=== PATIENT | female | born 1985 | race Two or more races ===

== ENCOUNTER 2021-10-10 14:27 | Emergency (ER) | payer SELFPAY ==
[~2021-10-10] VITALS: Ht 175.3 cm; Wt 112.0 kg
[2021-10-10] MEDS: cloNIDine HCL 0.1 MG TAB PO ONE (15:00)
[2021-10-10 15:41] LABS: Basophils # (auto) 0.1 10 ^3/uL (0-0.2); Basophils % (auto) 0.9 % (0.0-2.0); Eosinophils # (auto) 0.2 10 ^3/uL (0-0.8); Eosinophils % (auto) 2.5 % (0.0-7.0); Hematocrit 42.6 % (36.0-46.0); Lymphocytes % (auto) 30.7 % (10.0-50.0); Mean Corpuscular Hemoglobin 28.2 pg (28.0-32.0); Mean Corpuscular Hgb Conc. 32.8 g/dL (32.0-36.0); Mean Corpuscular Volume 85.9 fL (80.0-100.0); Monocytes # (auto) 0.8 10 ^3/uL (0-1.3); Monocytes % (auto) 7.8 % (0.0-12.0); Neutrophils # (auto) 5.6 10 ^3/uL (1.6-8.6); Neutrophils % (auto) 58.1 % (37.0-80.0); Red Blood Cells 4.97 10^6/uL (4.0-5.20); Red Cell Distribution Width 13.5 % (11.8-14.3); White Blood Cell 9.7 10^3/uL (4.4-10.8)
[2021-10-10 15:58] LABS: Calcium 8.9 mg/dL (8.5-10.1); Potassium 3.7 mmol/L (3.5-5.1)
[2021-10-10 16:01] LABS: BUN/Creatinine Ratio 18.5; Bilirubin, Total 0.4 mg/dL (0.2-1.0); Total Protein 8.1 g/dL (6.4-8.2)
[2021-10-10] MEDS: ACETAMINOPHEN 325 MG TAB PO ONE (22:12)
[2021-10-10 22:28] LABS: Urine Bacteria MOD /hpf (None Seen); Urine Blood 3+ /uL (Negative); Urine Mucus FEW (None Seen); Urine Specific Gravity 1.026 (1.001-1.035); Urine WBC 65 /hpf (0 - 5)
[2021-10-10] MEDS ORDERED: LISI20TA28 PO (23:39)
[2021-10-11] VITALS: BP 108/56
== END 2021-10-10 23:54 | disposition home or self-care (01) ==
LOC: ER 14:27
DX: I10 Essential (primary) hypertension (principal); R51.9 Headache, unspecified; Z91.018 Allergy to other foods
CPT/HCPCS: 36415; 70450; 71046; 80053; 81001; 81025; 84484; 85025; 93005

== ENCOUNTER 2022-03-31 04:56 | Emergency (ER) | payer SELFPAY ==
[~2022-03-31] VITALS: Ht 175.3 cm; Wt 115.0 kg
[~2022-03-31 04:56] MED LIST: LISI20TA28 PO
[2022-03-31 06:30] LABS: Basophils # (auto) 0.1 10 ^3/uL (0-0.2); Basophils % (auto) 0.9 % (0.0-2.0); Eosinophils # (auto) 0.2 10 ^3/uL (0-0.8); Eosinophils % (auto) 2.4 % (0.0-7.0); Hematocrit 41.9 % (36.0-46.0); Hemoglobin 13.9 g/dL (12.2-16.2); Lymphocytes # (auto) 2.4 10 ^3/uL (0.4-5.4); Lymphocytes % (auto) 32.9 % (10.0-50.0); Mean Corpuscular Hemoglobin 28.8 pg (28.0-32.0); Mean Corpuscular Hgb Conc. 33.1 g/dL (32.0-36.0); Mean Corpuscular Volume 87.1 fL (80.0-100.0); Monocytes # (auto) 0.6 10 ^3/uL (0-1.3); Monocytes % (auto) 8.1 % (0.0-12.0); Neutrophils # (auto) 4.1 10 ^3/uL (1.6-8.6); Neutrophils % (auto) 55.7 % (37.0-80.0); Nucleated Red Blood Cells % 0.1 %; Red Blood Cells 4.82 10^6/uL (4.0-5.20); Red Cell Distribution Width 13.2 % (11.8-14.3); White Blood Cell 7.4 10^3/uL (4.4-10.8)
[2022-03-31] MEDS ORDERED: LISINOPRIL 20 MG TAB PO ONE (06:45)
[2022-03-31 06:46] LABS: INR 0.97 (0.9-1.15); Partial Thromboplastin Time 28.1 sec (24.6-33.4)
[2022-03-31 06:48] LABS: Albumin 3.6 g/dL (3.4-5.0); BUN/Creatinine Ratio 15.2; Calcium 8.6 mg/dL (8.5-10.1); Magnesium 2.1 mg/dL (1.6-2.6)
[2022-03-31 06:51] LABS: Bilirubin, Total 0.4 mg/dL (0.2-1.0); Total Protein 7.6 g/dL (6.4-8.2)
[2022-03-31 07:36] VITALS: BP 154/83
[2022-03-31 08:58] LABS: Urine Bacteria NONE SEEN /hpf (None Seen); Urine Blood 3+ /uL (Negative); Urine Mucus FEW (None Seen); Urine Specific Gravity 1.012 (1.001-1.035); Urine WBC 7 /hpf (0 - 5)
[2022-03-31] MEDS ORDERED: LISI20TA28 PO (09:43)
[2022-03-31] MEDS ORDERED: NITR-87 PO (09:43)
== END 2022-03-31 09:55 | disposition home or self-care (01) ==
LOC: ER 04:56
DX: I10 Essential (primary) hypertension (principal); N39.0 Urinary tract infection, site not specified; Z91.018 Allergy to other foods
CPT/HCPCS: 36415; 71045; 80053; 81001; 83735; 83880; 84484; 85025; 85610; 85730; 93005

== ENCOUNTER 2023-10-13 19:56 | Inpatient (IN) | payer MEDICAID ==
[~2023-10-13] VITALS: Ht 175.3 cm; Wt 109.0 kg
[2023-10-13] MEDS: IOHEXOL 350 MG/ML 100ML IJ ONE (00:23)
[2023-10-13] MEDS: NITROGLYCERIN 0.4 MG SL TAB SL ONE (00:23)
[2023-10-13] MEDS: ASPirin 325 MG TAB PO ONE (00:24)
[2023-10-13] MEDS: SODIUM CHLORIDE 0.9% 1,000 ML IV SCH (00:24)
[~2023-10-13 19:56] MED LIST changes: -LISI20TA28 PO; +LISI20TA56 PO; +NITR-87 PO
[2023-10-13 20:23] LABS: Basophils # (auto) 0.1 10 ^3/uL (0-0.2); Basophils % (auto) 0.8 % (0.0-2.0); Eosinophils # (auto) 0.2 10 ^3/uL (0-0.8); Eosinophils % (auto) 2.3 % (0.0-7.0); Hematocrit 41.2 % (36.0-46.0); Hemoglobin 13.7 g/dL (12.2-16.2); Lymphocytes # (auto) 3.3 10 ^3/uL (0.4-5.4); Lymphocytes % (auto) 38.5 % (10.0-50.0); Mean Corpuscular Hemoglobin 28.6 pg (28.0-32.0); Mean Corpuscular Hgb Conc. 33.3 g/dL (32.0-36.0); Mean Corpuscular Volume 85.8 fL (80.0-100.0); Monocytes # (auto) 0.8 10 ^3/uL (0-1.3); Monocytes % (auto) 9.4 % (0.0-12.0); Neutrophils # (auto) 4.2 10 ^3/uL (1.6-8.6); Nucleated Red Blood Cells % 0.1 %; Platelet Count (auto) 298 10^3/uL (140-450); Red Blood Cells 4.81 10^6/uL (4.0-5.20); Red Cell Distribution Width 13.5 % (11.8-14.3); White Blood Cell 8.5 10^3/uL (4.4-10.8)
[2023-10-13 20:39] LABS: Alanine Aminotransferase 279 U/L (7-40); Albumin 4.6 g/dL (3.2-4.8); Alkaline Phosphatase 87 U/L (46-116); Anion Gap 7 (5-15); Aspartate Aminotransferase 284 U/L (13-40); BUN/Creatinine Ratio 17.1 (10.0-20.0); Bilirubin, Total 0.3 mg/dL (0.2-1.0); Blood Urea Nitrogen 13 mg/dL (9-23); Calcium 10.2 mg/dL (8.7-10.4); Carbon Dioxide 28 mmol/L (20-30); Chloride 102 mmol/L (98-107); Glucose 252 mg/dL (74-106); Potassium 4.2 mmol/L (3.5-5.1); Sodium 137 mmol/L (136-145)
[2023-10-13 20:40] LABS: Total Protein 7.4 g/dL (5.7-8.2)
[2023-10-13 20:42] VITALS: O2SAT 96
[2023-10-13] MEDS: ALBUTEROL SULF 2.5 MG/0.5ML(0.5%) NEB SOLN NEB ONE (20:42)
[2023-10-13] MEDS: IPRATROPIUM BROM 0.5 MG/2.5ML INH SOL NEB ONE (20:42)
[2023-10-13] MEDS ORDERED: IPRATROPIUM BROM 0.5 MG/2.5ML INH SOL NEB PRN (23:15)
[2023-10-13] MEDS ORDERED: NITROGLYCERIN 0.4 MG SL TAB SL PRN (23:15)
[2023-10-13] MEDS ORDERED: HYDROcodone-ACET 5/325MG TAB PO PRN (23:15)
[2023-10-13] MEDS ORDERED: DEXTROSE (50%) 50ML SYRG IV PRN (23:15)
[2023-10-13] MEDS ORDERED: IBUPROFEN 600 MG TAB PO PRN (23:15)
[2023-10-13] MEDS ORDERED: DOCUSATE SOD 100 MG CAP PO PRN (23:15)
[2023-10-13] MEDS ORDERED: MORPHINE SULFATE INJ 2 MG/ml SYRG IV PRN (23:15)
[2023-10-13] MEDS ORDERED: ONDANSETRON HCL 4 MG/2 ML VIAL IV PRN (23:15)
[2023-10-13] MEDS ORDERED: ALBUTEROL SULF 2.5 MG/0.5ML(0.5%) NEB SOLN NEB PRN (23:15)
[2023-10-13 23:29] VITALS: BP 166/108; PULSE 85; RESP 20; O2SAT 96
[2023-10-13 23:33] LABS: Urine Bacteria None Seen /hpf (None Seen)
[2023-10-13 23:53] LABS: Amphetamine Screen, Urine Neg (NEGATIVE); Barbiturate Scree,Urine Neg (NEGATIVE); Benzodiazephine Screen, Urine Neg (NEGATIVE); Cannabinoid Screen, Urine Neg (NEGATIVE); Cocaine Screen, Urine Neg (NEGATIVE); Opiate Scree,Urine Neg (NEGATIVE); Phencyclidine Screen, Urine Neg (NEGATIVE)
[2023-10-14] VITALS (10 sets, daily range): BP systolic 115–144; BP diastolic 72–90; PULSE 62–80; RESP 16–23; TEMP 97.9–98.7; O2SAT 95–97
[2023-10-14 00:17] LABS: Urine Blood 2+ /uL (Negative); Urine Clarity Clear (Clear); Urine Color Light-Yellow (Yellow); Urine Protein, UAD TRACE (Negative); Urine Urobilinogen Normal (Negative); Urine WBC 1 /hpf (0 - 5)
[2023-10-14] MEDS: MORPHINE SULFATE INJ 2 MG/ml SYRG IV PRN (00:22)
[2023-10-14 04:18] LABS: Basophils # (auto) 0.1 10 ^3/uL (0-0.2); Basophils % (auto) 0.7 % (0.0-2.0); Eosinophils # (auto) 0.1 10 ^3/uL (0-0.8); Eosinophils % (auto) 1.8 % (0.0-7.0); Hematocrit 40.8 % (36.0-46.0); Hemoglobin 13.8 g/dL (12.2-16.2); Lymphocytes # (auto) 3.2 10 ^3/uL (0.4-5.4); Mean Corpuscular Hemoglobin 29.5 pg (28.0-32.0); Mean Corpuscular Hgb Conc. 33.7 g/dL (32.0-36.0); Mean Corpuscular Volume 87.5 fL (80.0-100.0); Monocytes # (auto) 0.8 10 ^3/uL (0-1.3); Neutrophils # (auto) 3.8 10 ^3/uL (1.6-8.6); Neutrophils % (auto) 47.5 % (37.0-80.0); Nucleated Red Blood Cells % 0.1 %; Platelet Count (auto) 278 10^3/uL (140-450); Red Blood Cells 4.67 10^6/uL (4.0-5.20); Red Cell Distribution Width 13.7 % (11.8-14.3); White Blood Cell 8.1 10^3/uL (4.4-10.8)
[2023-10-14 04:37] LABS: Alanine Aminotransferase 234 U/L (7-40); Albumin 4.3 g/dL (3.2-4.8); Alkaline Phosphatase 77 U/L (46-116); Anion Gap 7 (5-15); Aspartate Aminotransferase 195 U/L (13-40); BUN/Creatinine Ratio 11.8 (10.0-20.0); Bilirubin, Total 0.3 mg/dL (0.2-1.0); Blood Urea Nitrogen 8 mg/dL (9-23); Calcium 9.3 mg/dL (8.7-10.4); Carbon Dioxide 24 mmol/L (20-30); Chloride 103 mmol/L (98-107); Glucose 281 mg/dL (74-106); Potassium 3.9 mmol/L (3.5-5.1); Sodium 134 mmol/L (136-145)
[2023-10-14 04:38] LABS: Total Protein 7.4 g/dL (5.7-8.2)
[2023-10-14] MEDS ORDERED: FLUO-126 PO (05:47)
[2023-10-14] MEDS: ACCU-CHEK COMFORT CURVE STRIP VI SCH (06:54)
[2023-10-14] MEDS: InsuLIN REG 1unit/0.01ml Soln (100units/ml) SC SCH ×2 (06:56→21:58)
[2023-10-14] MEDS: ASPirin 81 mg TAB PO SCH (09:07)
[2023-10-14 12:25] LABS: INR 1.06 (0.9-1.15); Partial Thromboplastin Time 26.8 SEC (24.5-34.5); Prothrombin Time 11.2 sec (9.3-11.8)
[2023-10-14] MEDS: ERGOCALCIFEROL 50,000 UNIT(1.25MG) CAP PO SCH (12:33)
[2023-10-14] MEDS: LISINOPRIL 20 MG TAB PO ONE (12:34)
[2023-10-14] MEDS: INSULIN LANTUS (GLARGINE) 1 /0.01ml (100units/ml) SC SCH (12:38)
[2023-10-14 12:39] LABS: LDL Cholesterol 130 mg/dL (< 100); Triglycerides 212 mg/dL (< 150)
[2023-10-14 12:40] LABS: Cholesterol 198 mg/dL (< 200); HDL Cholesterol 38 mg/dL (40-59)
[2023-10-14] MEDS: ENOXAPARIN SOD 40 MG/0.4 ML SYRINGE SC ONE (20:22)
[2023-10-14] MEDS ORDERED: ATORVASTATIN 20 MG TAB PO SCH (22:00)
[2023-10-15] VITALS (7 sets, daily range): BP systolic 111–153; BP diastolic 68–94; PULSE 71–86; RESP 16–20; TEMP 98–98.7; O2SAT 95–98
[2023-10-15 06:18] LABS: Basophils # (auto) 0.1 10 ^3/uL (0-0.2); Eosinophils # (auto) 0.3 10 ^3/uL (0-0.8); Eosinophils % (auto) 3.6 % (0.0-7.0); Hematocrit 40.4 % (36.0-46.0); Hemoglobin 13.9 g/dL (12.2-16.2); Lymphocytes # (auto) 3.1 10 ^3/uL (0.4-5.4); Mean Corpuscular Hemoglobin 30.3 pg (28.0-32.0); Mean Corpuscular Hgb Conc. 34.5 g/dL (32.0-36.0); Mean Corpuscular Volume 87.7 fL (80.0-100.0); Monocytes # (auto) 0.8 10 ^3/uL (0-1.3); Monocytes % (auto) 9.8 % (0.0-12.0); Neutrophils # (auto) 3.9 10 ^3/uL (1.6-8.6); Neutrophils % (auto) 47.6 % (37.0-80.0); Nucleated Red Blood Cells % 0.2 %; Platelet Count (auto) 321 10^3/uL (140-450); White Blood Cell 8.1 10^3/uL (4.4-10.8)
[2023-10-15 07:15] LABS: Chloride 103 mmol/L (98-107); Sodium 136 mmol/L (136-145)
[2023-10-15 07:16] LABS: Anion Gap 7 (5-15); Calcium 9.1 mg/dL (8.7-10.4); Carbon Dioxide 26 mmol/L (20-30)
[2023-10-15 07:21] LABS: BUN/Creatinine Ratio 17.9 (10.0-20.0); Blood Urea Nitrogen 12 mg/dL (9-23); Glucose 250 mg/dL (74-106)
[2023-10-15] MEDS: ENOXAPARIN SOD 40 MG/0.4 ML SYRINGE SC SCH (08:20)
[2023-10-15] MEDS: LISINOPRIL 20 MG TAB PO SCH (08:20)
[2023-10-15] MEDS: hydrALAZINE HCL 20 MG/ML VL IV PRN (08:21)
[2023-10-15] MEDS: INSULIN LANTUS (GLARGINE) 1 /0.01ml (100units/ml) SC SCH (08:30)
[2023-10-15] MEDS ORDERED: SULF400T11 (09:41)
[2023-10-15] MEDS ORDERED: OMEP1CAP70 PO (09:41)
[2023-10-15] MEDS ORDERED: ACET-6 PO (09:41)
[2023-10-15] MEDS ORDERED: METF-370 PO (09:41)
[2023-10-15] MEDS ORDERED: FLUO-470 PO (09:41)
[2023-10-15] MEDS ORDERED: ATOR10TA52 PO (09:41)
[2023-10-16] VITALS (9 sets, daily range): BP systolic 102–136; BP diastolic 70–89; PULSE 65–90; RESP 17–20; TEMP 97.3–98; O2SAT 91–98
[2023-10-16 07:22] LABS: Basophils # (auto) 0 10 ^3/uL (0-0.2); Basophils % (auto) 0.5 % (0.0-2.0); Eosinophils # (auto) 0.2 10 ^3/uL (0-0.8); Hemoglobin 13.9 g/dL (12.2-16.2); Lymphocytes # (auto) 2.9 10 ^3/uL (0.4-5.4); Mean Corpuscular Hemoglobin 28.6 pg (28.0-32.0); Mean Corpuscular Hgb Conc. 33.1 g/dL (32.0-36.0); Mean Corpuscular Volume 86.5 fL (80.0-100.0); Monocytes # (auto) 0.8 10 ^3/uL (0-1.3); Monocytes % (auto) 10.8 % (0.0-12.0); Neutrophils # (auto) 3.2 10 ^3/uL (1.6-8.6); Neutrophils % (auto) 44.7 % (37.0-80.0); Nucleated Red Blood Cells % 0.1 %; Platelet Count (auto) 293 10^3/uL (140-450); Red Blood Cells 4.86 10^6/uL (4.0-5.20); Red Cell Distribution Width 13.6 % (11.8-14.3)
[2023-10-16 07:44] LABS: Anion Gap 6 (5-15); Carbon Dioxide 27 mmol/L (20-30); Chloride 104 mmol/L (98-107); Potassium 3.9 mmol/L (3.5-5.1); Sodium 137 mmol/L (136-145)
[2023-10-16 07:45] LABS: Calcium 9.2 mg/dL (8.7-10.4)
[2023-10-16 07:50] LABS: BUN/Creatinine Ratio 16.5 (10.0-20.0); Blood Urea Nitrogen 13 mg/dL (9-23); Glucose 217 mg/dL (74-106)
[2023-10-17 09:00] LABS: Hepatitis B Surface Antigen Negative (Negative)
[2023-10-17 09:22] LABS: Hepatitis A Ab IgM Negative; Hepatitis B Core IgM Negative; Hepatitis C Antibody Negative (Negative)
== END 2023-10-16 17:39 | disposition home or self-care (01) | DRG 198 ==
LOC: ER 19:56 → TELE 23:19 → TELE-WESTW 10-14 04:50 → WEST WING 10-16 00:27
PROVIDERS: ATTEND Internal Medicine
DX: I24.9 Acute ischemic heart disease, unspecified (principal); K76.0 Fatty (change of) liver, not elsewhere classified; R16.2 Hepatomegaly with splenomegaly, not elsewhere classified; E11.65 Type 2 diabetes mellitus with hyperglycemia; E78.5 Hyperlipidemia, unspecified; I10 Essential (primary) hypertension; L73.2 Hidradenitis suppurativa; F41.0 Panic disorder [episodic paroxysmal anxiety]; Z98.891 History of uterine scar from previous surgery; Z82.49 Family history of ischemic heart disease and other diseases of the circulatory system; Z83.3 Family history of diabetes mellitus; Z79.899 Other long term (current) drug therapy
CPT/HCPCS: 36415; 71045; 71275; 76705; 80048; 80053; 80061; 80074; 80307; 81001; 82306; 82607; 82962; 83036; 83880; 84443; 84484; 84702; 85025; 85379; 85610; 85730; 93005; 93306; 94640; 96360; G0378; J1815

== ENCOUNTER 2024-10-18 07:36 | Inpatient (IN) | payer MEDICAID ==
[~2024-10-18] VITALS: Ht 175.3 cm; Wt 103.2 kg
[~2024-10-18 07:36] MED LIST changes: -NITR-87 PO
--- NOTE | 2024-10-18 08:32 | ED.PDOC ---
HPI (NEURO) HPI Comments 39 y/o female, with past medical history of diabetes, hyperlipidemia, and hypertension presents to the emergency department for chief complaint of dizziness sudden onset today at 4:00 a.m. Patient states, she began to experience dizziness with associated symptoms of shortness of breath that woke her up out of her sleep. Upon arrival to the emergency department, patient complains of new onset intermittent chest pain. Patient describes chest pain to be tight in nature with no radiation. Patient denies blurred vision, headache, nausea, vomiting, numbness, or weakness. No other symptoms or modifying factors are present at this time. Chief Complaint: Dizziness Time Seen by MD: 08:25 Primary Care Provider: CALEB DAVID Reviewed Notes: Nurses Notes, Medications, Allergies Information Source: Patient Mode of Arrival: Ambulatory Severity: Moderate Dizziness/Weakness Severity: Does not affect activitie Headache Severity: None Timing: Hours Duration: Since onset Prehospital treatment: None Onset: At rest Circumstances: Spontaneous Symptoms: Other (Dizziness) Before: Normal During: Awake After: Normal Mentation History of: DM Modifying factors: Nothing Associated Signs and Symptoms: Chest Pain Past Medical History PAST MEDICAL HISTORY: DM, High Lipids, HTN 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: No Pertinent METER REPAIRER HELPER History Family History Family History: Unknown Social History Smoker: Non-Smoker Alcohol: Denies ETOH Use Drugs: Denies Drug Use Lives In: Home Constitutional: denies: chills, diaphoresis, fatigue, fever, malaise, sweats, weakness, others EENTM: denies: blurred vision, double vision, ear bleeding, ear discharge, ear drainage, ear pain, ear ringing, eye pain, eye redness, hearing loss, mouth pain, mouth swelling, nasal discharge, nose bleeding, nose congestion, nose pain, photophobia, tearing, throat pain, throat swelling, voice changes, others Respiratory: reports: shortness of breath; denies: cough, hemoptysis, orthopnea, SOB at rest, SOB with excertion, stridor, wheezing, others Cardiovascular: reports: chest pain; denies: dizzy spells, diaphoresis, Dyspnea on exertion, edema, irregular heart beat, left arm pain, lightheadedness, palpitations, PND, syncope, others Gastrointestinal: denies: abdomen distended, abdominal pain, blood streaked bowels, constipated, diarrhea, dysphagia, difficulty swallowing, hematemesis, melena, nausea, poor appetite, poor fluid intake, rectal bleeding, rectal pain, vomiting, others Genitourinary: denies: abnormal vagina bleeding, burning, dyspareunia, dysuria, flank pain, frequency, hematuria, incontinence, pain, , vagina discharge, urgency, others Neurological: reports: dizziness; denies: fainting, headache, left sided numbness, left sided weakness, numbness, paresthesia, pre-existing deficit, right sided numbness, right sided weakness, seizure, speech problems, tingling, tremors, weakness, others Musculoskeletal: denies: back pain, gout, joint pain, joint swelling, muscle pain, muscle stiffness, neck pain, others Integumetry: denies: bruises, change in color, change in hair/nails, dryness, laceration, lesions, lumps, rash, wounds, others Allergic/Immunocompromised: denies: Difficulty Healing, Frequent Infections, Hives, Itching, others Hematologic/Lymphatic: denies: anemia, blood clots, easy bleeding, easy bruising, swollen glands, others Endocrine: denies: excessive hunger, excessive sweating, excessive thirst, excessive urination, flushing, intolerance to cold, intolerance to heat, unexplained weight gain, unexplained weight loss, others Psychiatric: denies: anxiety, bipolar disorder, depression, hopeless, panic disorder, schizophrenia, sleepless, suicidal, others All Other Systems: Reviewed and Negative Physical Exam General Appearance: No Apparent Distress, Normal HEENT: Normal ENT Inspection, Pharynx Normal Neck: Full Range of Motion, Non-Tender, Normal, Normal Inspection Respiratory: Chest Non-Tender, Lungs Clear, No Accessory Muscle Use, No Respiratory Distress, Normal Breath Sounds Cardiovascular: No Edema, No Murmur, No Gallop, Normal Peripheral Pulses, Regular Rate/Rhythm Breast Exam: Deferred Gastrointestinal: No Organomegaly, Non Tender, No Pulsatile Mass, Normal Bowel Sounds, Soft Genitalia: Deferred Pelvic: Deferred Rectal: Deferred Extremities: No calf tenderness, Normal capillary refill, Normal inspection, Normal range of motion, Non-tender, No pedal edema Musculoskeletal : Apperance: Normal Neurologic: Alert, cutter down II-XII nml as Tested, No Motor Deficits, Normal Affect, Normal Mood, No Sensory Deficits Cerebellar Function: Normal Reflexes: Normal Skin: Dry, Normal Color, Warm Lymphatic: No Adenopathy Was a procedure done? Was a procedure done?: No Differential Diagnosis (SZ) Seizure: Hypocalcemia General Weakness: Vertigo: central, Vertigo: peripheral, Other (Hypertensive urgency) X-Ray, Labs, Meds, VS Vital Signs Date Time Temp Pulse Resp B/P (MAP) Pulse Ox O2 Delivery O2 Flow Rate FiO2 10/18/24 08:10 79 10/18/24 07:38 98.7 92 16 180/108 99 98.7 Lab Test 10/18/24 09:23 10/18/24 08:45 10/18/24 08:25 Range/Units Troponin I High Sensitivity < 3 L < 3 L </=34 ng/L Urine Color Light-yellow Yellow Urine Clarity Clear Clear Urine pH 6.0 5.0-9.0 Urine Specific [place] 1.017 1.001-1.035 Urine Protein Negative Negative Urine Ketones Negative Negative Urine Blood Negative Negative /uL Urine Nitrite Negative Negative Urine Bilirubin Negative Negative Urine Urobilinogen Normal Negative mg/dL Urine Leukocyte Esterase Negative Negative /uL Urine RBC 1 0 - 4 /hpf Urine Microscopic WBC 1 0-5 /HPF Urine Squamous Epithelial Cells Few <5 /hpf Urine Bacteria None seen None Seen /hpf Urine Mucus Few None Seen Urine Glucose Normal Normal mg/dL White Blood Count 9.2 4.4-10.8 10^3/uL Red Blood Count 4.60 4.0-5.20 10^6/uL Hemoglobin 13.1 12.2-16.2 g/dL Hematocrit 38.8 36.0-46.0 % Mean Corpuscular Volume 84.4 80.0-100.0 fL Mean Corpuscular Hemoglobin 28.4 28.0-32.0 pg Mean Corpuscular Hemoglobin Concent 33.7 32.0-36.0 g/dL Red Cell Distribution Width 14.2 11.8-14.3 % Platelet Count 344 140-450 10^3/uL Mean Platelet Volume 8.0 6.9-10.8 fL Neutrophils (%) (Auto) 59.6 37.0-80.0 % Lymphocytes (%) (Auto) 30.9 10.0-50.0 % Monocytes (%) (Auto) 6.8 0.0-12.0 % Eosinophils (%) (Auto) 2.1 0.0-7.0 % Basophils (%) (Auto) 0.6 0.0-2.0 % Neutrophils # (Auto) 5.5 1.6-8.6 10 ^3/uL Lymphocytes # (Auto) 2.9 0.4-5.4 10 ^3/uL Monocytes # (Auto) 0.6 0-1.3 10 ^3/uL Eosinophils # (Auto) 0.2 0-0.8 10 ^3/uL Basophils # (Auto) 0.1 0-0.2 10 ^3/uL Nucleated Red Blood Cells 0.0 % Sodium Level 140 136-145 mmol/L Potassium Level 3.8 3.5-5.1 mmol/L Chloride Level 105 98-107 mmol/L Carbon Dioxide Level 26 20-31 mmol/L Anion Gap 9 5-15 Blood Urea Nitrogen 7 L 9-23 mg/dL Creatinine 0.68 0.550-1.02 mg/dL Glomerular Filtration Rate Calc 112 >90 mL/min BUN/Creatinine Ratio 10.3 10.0-20.0 Serum Glucose 129 H 74-106 mg/dL Calcium Level 9.0 8.7-10.4 mg/dL [place] [address] Ph: [phone] DIAGNOSTIC IMAGING Diagnostic Imaging Report : [id number] Signed PATIENT: SARA ARAGON AACCT: [id number] UNIT: [id number] : 1985 LOC: ER ROOM / BED: / AGE / SEX: 39 / F ADM STATUS: REG ER SERVICE [id number] ORDERING PHYSICIAN: RINA ROCHE MD PROCEDURE(s): CXRP - CHEST PORTABLE REASON: weakness ORDER NUMBER(s): [id number], ACCESSION NUMBER(s): [id number] INDICATION: weakness TECHNIQUE: Frontal view of the chest. COMPARISON: CT CT ANGIO CHEST CONTRAST on DOS: 10/13/23, XY CHEST PORTABLE on DOS: 10/13/23, XY CHEST PORTABLE on DOS: 05/28/23, CHEST PORTABLE on DOS: 03/31/22, CXRP on DOS: 03/31/22 FINDINGS: . The heart and mediastinal contours are grossly unremarkable. There is no evidence of pleural disease. The lungs are clear. The bony structures of the chest are intact without fracture. IMPRESSION: 1. No evidence of acute disease. ATED BY: DAMION GUERRIER MD DICTATED DATE/TIME: 10/18/24841 SIGNED BY: DAMION GUERRIER MD SIGNED DATE/TIME: 10/18/24841 CC: [place] [address] Ph: [phone] DIAGNOSTIC IMAGING Diagnostic Imaging Report : [id number] Signed PATIENT: SARA ARAGON AACCT: [id number] UNIT: [id number] : 1985 LOC: ER ROOM / BED: / AGE / SEX: 39 / F ADM STATUS: REG ER SERVICE 1 ORDERING PHYSICIAN: RINA ROCHE MD PROCEDURE(s): HWOCT - HEAD WITHOUT CONTRAST REASON: weakness ORDER NUMBER(s): [id number], ACCESSION NUMBER(s): [id number] EXAM: CT HEAD WITHOUT CONTRAST INDICATION: weakness TECHNIQUE: CT of the head without intravenous contrast. Coronal and sagittal reformatted images are submitted. Radiation Dose : 1. Head: CT Dose: CTDI volume is 54.97 mGy. Dose-length product is 879.5 mGy*cm The dose indicators for CT are the volume Computed Tomography (CT) Dose Index (CTDIvol) and the Dose Length Product (DLP), and are measured in units of mGy and mGy-cm, respectively. These indicators are not patient dose, but values generated from the CT scanner acquisition factors. The report includes radiation exposure data for exposures received during this examination. All CT scans at this medical facility are performed using dose modulation techniques as appropriate to a performed exam including the following: Automated exposure control was utilized; adjustment of the MA and/or KV according to patient size; and use of iterative reconstruction technique. COMPARISON: HEAD WITHOUT CONTRAST on DOS: 10/10/21 FINDINGS: There is no evidence of acute intracranial hemorrhage, extra-axial collection, mass effect, midline shift, herniation or hydrocephalus. The ventricles, sulci and cisterns are age appropriate. The correa-white differentiation is intact. The visualized paranasal sinuses and mastoid air cells are clear. No depressed calvarial fracture. The surrounding soft tissues are unremarkable. IMPRESSION: 1. No evidence of acute intracranial abnormality. ATED BY: FLY ALVARADO MD DICTATED DATE/TIME: 10/18/24840 SIGNED BY: FLY ALVARADO MD SIGNED DATE/TIME: 10/18/24840 CC: Time of 1ST Reevaluation: 08:55 Reevaluation 1ST: Unchanged Patient Education/Counseling: Diagnosis, Treatment Family Education/Counseling: No Family Present Departure 1 Departure Time of Disposition: 10:34 (Patient presented with chest pain that was concerning for possible STEMI, ACS, PE, Pneumonia, Muscle Strain, COPD, Dissection. Data: 1. I ordered and reviewed the result of at least 3 labs including a CBC, BMP, and Troponin. 2. I independently interpreted the following tests: EKG which shows _ sinus arrhythmia and Chest X-ray which shows benign chest _.Risk:This patient has a high risk of morbidity due to further diagnostic testing or treatment and may suffer from an acute cardiac or respiratory disorder. Workup reveals concern for ACS and patient should be admitted for further workup and possible expert consultation. ) Impression: Primary Impression: Acute chest pain Additional Impression: Dizziness Disposition: 09 ADMITTED INPATIENT Admit to: Med Surg Condition: Guarded Critical Care Note Critical Care Time?: Yes Critical care comment: Acute Chest Pain Authorized and Performed by: Rina Roche MD Total critical care time: Approximately 39 minutes Due to a high probability of clinically significant, life threatening deterioration, the patient required my highest level of preparedness to intervene emergently and I personally spent this critical care time directly and personally managing the patient. This critical care time included obtaining a history; examining the patient; pulse oximetry; ordering and review of studies; arranging urgent treatment with development of a management plan; evaluation of patient's response to treatment; frequent reassessment; and, discussions with other providers. This critical care time was performed to assess and manage the high probability of imminent, life-threatening deterioration that could result in multi-organ failure. It was exclusive of separately billable procedures and treating other patients and teaching time. Please see my other sections and the rest of the note for further information on patient assessment and treatment. Stability Stability form required: No Heart Score Heart Score: Heart Score Response (Comments) Value History Moderate Suspicious 1 EKG Repolarization Disturb 1 Age <45 0 Risk Factors >3 or Hx ASHD 2 Troponin 1-2 x's Normal limit 1 Total 5 I personally scribed for RINA ROCHE MD ([facility] on 10/18/24 at 08:32. Elect ronically submitted by Caridad Colunga ([employer]). I personally scribed for RINA ROCHE MD ([facility]) on 10/18/24 at 08:59. Electronically submitted by Caridad Colunga ([employer]). I personally scribed for RINA ROCHE MD ([email or web address]) on 10/18/24 at 09:00. Electronically submitted by Caridad Colunga ([facility]). RINA ROCHE MD Oct 18, 2024 08:32
--- NOTE | 2024-10-18 08:43 | DVH ---
EXAM: CT HEAD WITHOUT CONTRAST INDICATION: weakness TECHNIQUE: CT of the head without intravenous contrast. Coronal and sagittal reformatted images are s ubmitted. Radiation Dose : 1. Head: CT Dose: CTDI volume is 54.97 mGy. Dose-length product is 879.5 mGy*cm The dose indicators for CT are the volume Computed Tomography (CT) Dose Index (CTDIvol) and the Dose Length Product (DLP), and are measured in units of mGy and mGy-cm, respectively. These indicators are not patient dose, but values generated from the CT scanner acquisition factors. The report includes radiation exposure data for exposures received during this examination. All CT scans at this medical facility are performed using dose modulation techniques as appropriate to a performed exam including the following: Automated exposure control was utilized; adjustment of the MA and/or KV according to patient size; and use of iterative reconstruction technique. COMPARISON: HEAD WITHOUT CONTRAST on DOS: 10/10/21 FINDINGS: There is no evidence of acute intracranial hemorrhage, extra-axial collection, mass effect, midline s hift, herniation or hydrocephalus. The ventricles, sulci and cisterns are age appropriate. The correa-white differentiation is intact. The visualized paranasal sinuses and mastoid air cells are clear. No depressed calvarial fracture. The surrounding soft tissues are unremarkable. IMPRESSION: 1. No evidence of acute intracranial abnormality.
--- NOTE | 2024-10-18 08:45 | DVH ---
INDICATION: weakness TECHNIQUE: Frontal view of the chest. COMPARISON: CT CT ANGIO CHEST CONTRAST on DOS: 10/13/23, XY CHEST PORTABLE on DOS: 10/13/23, XY CHEST P ORTABLE on DOS: 05/28/23, CHEST PORTABLE on DOS: 03/31/22, CXRP on DOS: 03/31/22 FINDINGS: . The heart and mediastinal contours are grossly unremarkable. There is no evidence of pleural disea se. The lungs are clear. The bony structures of the chest are intact without fracture. IMPRESSION: 1. No evidence of acute disease.
[2024-10-18 09:07] LABS: Chloride 105 mmol/L (98-107); Hematocrit 38.8 % (36.0-46.0); Hemoglobin 13.1 g/dL (12.2-16.2); Mean Corpuscular Hemoglobin 28.4 pg (28.0-32.0); Mean Corpuscular Volume 84.4 fL (80.0-100.0); Nucleated Red Blood Cells % 0.0 %; Potassium 3.8 mmol/L (3.5-5.1); Sodium 140 mmol/L (136-145)
[2024-10-18 09:08] LABS: Urine Protein, UAD Negative (Negative)
[2024-10-18 09:08] LABS: Anion Gap 9 (5-15); Carbon Dioxide 26 mmol/L (20-31)
[2024-10-18 09:09] LABS: Calcium 9.0 mg/dL (8.7-10.4)
[2024-10-18 09:13] LABS: BUN/Creatinine Ratio 10.3 (10.0-20.0)
[2024-10-18 09:16] LABS: Blood Urea Nitrogen 7 mg/dL (9-23); Glucose 129 mg/dL (74-106)
[2024-10-18] MEDS ORDERED: MORPHINE SULFATE INJ 2 MG/ml SYRG IV PRN (14:30)
[2024-10-18] MEDS ORDERED: ONDANSETRON HCL 4 MG/2 ML VIAL IV PRN (14:30)
[2024-10-18] MEDS ORDERED: NITROGLYCERIN 0.4 MG SL TAB SL PRN (14:30)
[2024-10-18 14:50] VITALS: PULSE 80; RESP 17; O2SAT 95
[2024-10-18 15:05] VITALS: BP 139/91; PULSE 72; RESP 16; TEMP 98.1; O2SAT 97
--- NOTE | 2024-10-18 15:51 | DVHHP2 ---
History of Present Illness Reason for Visit: Chest pain History of Present Illness 39-year-old female presents for evaluation of chest pain. Patient reports a one day history of left-sided pressure-like chest pain that radiates to her left shoulder with associated shortness for breath and new onset of dizziness. Patient was discharged four days ago after being admitted with similar symptoms. Patient was advised to follow up with Cardiology as outpatient but she has been canceled twice for her appointment. Past Medical History Hypertension, dyslipidemia, diabetes mellitus Past Surgical History Family History Noncontributory Smoke: No ALCOHOL: none Drugs: None Lives: with Family Review of Systems Review of Systems Review of systems are currently negative otherwise addressed in HPI. Allergies: Coded Allergies: Honey (Verified Allergy, Unknown, 10/10/21) Medications Current Medications Medications Dose Ordered Sig/Presley Route Start Time Stop Time Status Last Admin Dose Admin Lisinopril 20 mg DAILY PO 10/19/24 10:00 UNV Aspirin 81 mg DAILY PO 10/19/24 10:00 UNV Atorvastatin Calcium 10 mg HS PO 10/18/24 22:00 UNV Ondansetron HCl 4 mg Q4HP PRN IV 10/18/24 14:30 UNV Nitroglycerin 0.4 mg Q5MINP PRN SL 10/18/24 14:30 UNV Morphine Sulfate 2 mg Q30M PRN IV 10/18/24 14:30 UNV Exam Vital Signs Vital Signs Date Time Temp Pulse Resp B/P (MAP) Pulse Ox O2 Delivery O2 Flow Rate FiO2 10/18/24 15:05 98.1 72 16 139/91 (107) 97 98.1 10/18/24 14:50 Room Air* 0 21 Exam Gen: 39-year-old female in no apparent distress. Skin: Warm, dry, normal color and texture, no rash. HEENT: Normocephalic atraumatic, mucous membranes moist and pink. Neck: Cervical and supraclavicular nodes normal without enlargement, trachea is midline, thyroid gland is normal without masses. Pulmonary: Clear to auscultation and percussion bilaterally. Cardiac: Regular rate and rhythm. No murmur Abdomen: Soft, nontender, nondistended, bowel sounds present all 4 quadrants, no guarding, no rigidity, no organomegaly. Extremities: No cyanosis, clubbing, no edema Neuro: Cranial nerves II through XII grossly intact, normal affect and speech, no focal motor deficits. Labs/Xrays ORDERING PHYSICIAN: RINA ROCHE MD PROCEDURE(s): HWOCT - HEAD WITHOUT CONTRAST REASON: weakness ORDER NUMBER(s): [id number], ACCESSION NUMBER(s): [id number] EXAM: CT HEAD WITHOUT CONTRAST INDICATION: weakness TECHNIQUE: CT of the head without intravenous contrast. Coronal and sagittal reformatted images are submitted. Radiation Dose : 1. Head: CT Dose: CTDI volume is 54.97 mGy. Dose-length product is 879.5 mGy*cm The dose indicators for CT are the volume Computed Tomography (CT) Dose Index (CTDIvol) and the Dose Length Product (DLP), and are measured in units of mGy and mGy-cm, respectively. These indicators are not patient dose, but values generated from the CT scanner acquisition factors. The report includes radiation exposure data for exposures received during this examination. All CT scans at this medical facility are performed using dose modulation techniques as appropriate to a performed exam including the following: Automated exposure control was utilized; adjustment of the MA and/or KV according to patient size; and use of iterative reconstruction technique. COMPARISON: HEAD WITHOUT CONTRAST on DOS: 10/10/21 FINDINGS: There is no evidence of acute intracranial hemorrhage, extra-axial collection, mass effect, midline shift, herniation or hydrocephalus. The ventricles, sulci and cisterns are age appropriate. The correa-white differentiation is intact. The visualized paranasal sinuses and mastoid air cells are clear. No depressed calvarial fracture. The surrounding soft tissues are unremarkable. IMPRESSION: 1. No evidence of acute intracranial abnormality. Labs Test 10/18/24 09:23 10/18/24 08:45 10/18/24 08:25 Range/Units Troponin I High Sensitivity < 3 L </=34 ng/L Urine Color Light-yellow Yellow Urine Clarity Clear Clear Urine pH 6.0 5.0-9.0 Urine Specific [place] 1.017 1.001-1.035 Urine Protein Negative Negative Urine Ketones Negative Negative Urine Blood Negative Negative /uL Urine Nitrite Negative Negative Urine Bilirubin Negative Negative Urine Urobilinogen Normal Negative mg/dL Urine Leukocyte Esterase Negative Negative /uL Urine RBC 1 0 - 4 /hpf Urine Microscopic WBC 1 0-5 /HPF Urine Squamous Epithelial Cells Few <5 /hpf Urine Bacteria None seen None Seen /hpf Urine Mucus Few None Seen Urine Glucose Normal Normal mg/dL White Blood Count 9.2 4.4-10.8 10^3/uL Red Blood Count 4.60 4.0-5.20 10^6/uL Hemoglobin 13.1 12.2-16.2 g/dL Hematocrit 38.8 36.0-46.0 % Mean Corpuscular Volume 84.4 80.0-100.0 fL Mean Corpuscular Hemoglobin 28.4 28.0-32.0 pg Mean Corpuscular Hemoglobin Concent 33.7 32.0-36.0 g/dL Red Cell Distribution Width 14.2 11.8-14.3 % Platelet Count 344 140-450 10^3/uL Mean Platelet Volume 8.0 6.9-10.8 fL Neutrophils (%) (Auto) 59.6 37.0-80.0 % Lymphocytes (%) (Auto) 30.9 10.0-50.0 % Monocytes (%) (Auto) 6.8 0.0-12.0 % Eosinophils (%) (Auto) 2.1 0.0-7.0 % Basophils (%) (Auto) 0.6 0.0-2.0 % Neutrophils # (Auto) 5.5 1.6-8.6 10 ^3/uL Lymphocytes # (Auto) 2.9 0.4-5.4 10 ^3/uL Monocytes # (Auto) 0.6 0-1.3 10 ^3/uL Eosinophils # (Auto) 0.2 0-0.8 10 ^3/uL Basophils # (Auto) 0.1 0-0.2 10 ^3/uL Nucleated Red Blood Cells 0.0 % Sodium Level 140 136-145 mmol/L Potassium Level 3.8 3.5-5.1 mmol/L Chloride Level 105 98-107 mmol/L Carbon Dioxide Level 26 20-31 mmol/L Anion Gap 9 5-15 Blood Urea Nitrogen 7 L 9-23 mg/dL Creatinine 0.68 0.550-1.02 mg/dL Glomerular Filtration Rate Calc 112 >90 mL/min BUN/Creatinine Ratio 10.3 10.0-20.0 Serum Glucose 129 H 74-106 mg/dL Calcium Level 9.0 8.7-10.4 mg/dL SEPSIS Sepsis Screen Date sepsis recognized/suspect: Oct 18, 2024 Time Sepsis recognized/suspect: 1449 Recent Procedure: No On Antibiotic Therapy: No Respiratory Rate >20: No Heart Rate >90: No Temp<36 C (96.8 F) or >38.3 C: No SBP <90 or MAP <65 mmHG: No New Acute Mental Status Change: No Is the patient on CPAP, BIPAP,: No Physician Orders Chest Portable (10/18/24 08:02) Head Without Contrast (10/18/24 08:02) Electrocardigram (10/18/24 08:02) Electrocardigram (10/18/24 09:02) Electrocardigram (10/18/24 11:02) Lisinopril Tablet (Zestril Tablet) (10/19/24 10:00) Aspirin Tablet (10/19/24 10:00) Atorvastatin (Lipitor) (10/18/24 22:00) Basic Metabolic Panel (10/19/24 04:00) Admit (10/18/24 14:21) Ondansetron Hcl (Zofran) (10/18/24 14:30) Cardiac Diet-2gna,Lofat,Lochol (10/18/24 Dinner) Condition: Fair (10/18/24 14:21) Bedrest With Bathroom Privileg (10/18/24 14:21) Nitroglycerin Sublingual (Ntrostat Subli (10/18/24 14:30) Morphine Sulfate Injection (10/18/24 14:30) Stat Ekg For Chest Pain (10/18/24 14:21) Notify Md Of Changes From Base (10/18/24 14:21) Mathematics Instructor For 24 Hours (10/18/24 14:21) Emergency Dysrhythmia Protocol (10/18/24 14:21) Rhythm Strips Once Every Shift (10/18/24 14:21) Oxygen By Nasal Cannula (10/18/24 14:21) Vital Signs Date Time Temp Pulse Resp B/P (MAP) Pulse Ox O2 Delivery O2 Flow Rate FiO2 10/18/24 15:05 98.1 72 16 139/91 (107) 97 98.1 10/18/24 14:50 80 17 95 Room Air* 0 21 10/18/24 13:30 98.4 80 18 132/85 (101) 95 98.4 10/18/24 08:10 79 Laboratory Tests Test 10/18/24 08:25 White Blood Count 9.2 10^3/uL (4.4-10.8) Assessment/Plan Assessment/Plan Assessment Chest pain Hypertension Diabetes mellitus Obesity Plan Admit the patient to telemetry to the hospitalist Cardiology consultation Resume home medications Continue treatment per orders. Plan discussed with: Patient My Orders Orders - SHAHRZAD ESTEVEZ Procedure Category Date Status Time Lisinopril Tablet PHA 10/19/24 Logged (Zestril Tablet) 10:00 Aspirin Tablet PHA 10/19/24 Logged 10:00 Atorvastatin (Lipitor) PHA 10/18/24 Logged 22:00 Basic Metabolic Panel LAB 10/19/24 Verified 04:00 Admit ADMIT 10/18/24 Transmitted 14:21 Ondansetron Hcl PHA 10/18/24 Logged (Zofran) 14:30 Cardiac DIET 10/18/24 Transmitted Diet-2gna,Lofat,Lochol Dinner Condition: Fair [facility] 10/18/24 In Process 14:21 Bedrest With Bathroom [facility] 10/18/24 In Process Privileg 14:21 Nitroglycerin PHA 10/18/24 Logged Sublingual (Ntrostat 14:30 Morphine Sulfate [facility] 10/18/24 Logged Injection 14:30 Stat Ekg For Chest [facility] 10/18/24 In Process Pain 14:21 Notify Md Of Changes [facility] 10/18/24 In Process From Base 14:21 Mathematics Instructor For [facility] 10/18/24 In Process 24 Hours 14:21 Emergency Dysrhythmia [facility] 10/18/24 In Process Protocol 14:21 Rhythm Strips Once [facility] 10/18/24 In Process Every Shift 14:21 Oxygen By Nasal RT 10/18/24 Transmitted Cannula 14:21 Date of Service: Oct 18, 2024 Billing Provider: SHAHRZAD ESTEVEZ Common Visit Codes: [id number] INP/OBS CARE (HIGH) SHAHRZAD ESTEVEZ Oct 18, 2024 15:51
[2024-10-18 16:49] VITALS: BP 130/79; PULSE 77; RESP 18; TEMP 98.5; O2SAT 95
[2024-10-18] MEDS ORDERED: DEXTROSE (50%) 50ML SYRG IV PRN (19:45)
[2024-10-18 21:00] VITALS: BP 135/86; PULSE 80; RESP 16; TEMP 97.7; O2SAT 96
[2024-10-18] MEDS: InsuLIN REG 1unit/0.01ml Soln (100units/ml) SC SCH (21:15)
[2024-10-18] MEDS: ATORVASTATIN 20 MG TAB PO SCH (21:15)
[2024-10-18] MEDS: ACCU-CHEK COMFORT CURVE STRIP VI SCH (21:16)
[2024-10-19 01:00] VITALS: BP 132/79; PULSE 77; RESP 18; TEMP 97.6; O2SAT 95
[2024-10-19 05:00] VITALS: BP 130/86; PULSE 75; RESP 16; TEMP 97.6; O2SAT 94
[2024-10-19 06:05] LABS: Anion Gap 11 (5-15); Calcium 8.9 mg/dL (8.7-10.4); Carbon Dioxide 22 mmol/L (20-31); Chloride 104 mmol/L (98-107); Potassium 3.7 mmol/L (3.5-5.1); Sodium 137 mmol/L (136-145)
[2024-10-19 06:11] LABS: BUN/Creatinine Ratio 9.1 (10.0-20.0); Glucose 104 mg/dL (74-106)
[2024-10-19 06:27] LABS: Blood Urea Nitrogen 6 mg/dL (9-23)
[2024-10-19 09:00] VITALS: BP 143/90; PULSE 84; RESP 19; TEMP 98.9; O2SAT 93
[2024-10-19 09:22] LABS: Magnesium 2.4 mg/dL (1.6-2.6)
[2024-10-19 09:23] LABS: Cholesterol 190.0 mg/dL (< 200); HDL Cholesterol 45.0 mg/dL (40-59)
[2024-10-19 09:29] LABS: Triglycerides 192.0 mg/dL (< 150)
[2024-10-19] MEDS: LISINOPRIL 20 MG TAB PO SCH (09:29)
[2024-10-19 10:16] LABS: Amphetamine Screen, Urine Neg (NEGATIVE); Barbiturate Scree,Urine Neg (NEGATIVE); Benzodiazephine Screen, Urine Neg (NEGATIVE); Cannabinoid Screen, Urine Neg (NEGATIVE); Cocaine Screen, Urine Neg (NEGATIVE); Opiate Scree,Urine Neg (NEGATIVE); Phencyclidine Screen, Urine Neg (NEGATIVE)
--- NOTE | 2024-10-19 10:59 | DVHINCON2 ---
Date Seen: Oct 19, 2024 Referring Physician TWIN Ha Reason for Consultation Chest pain History of Present Illness This is a 39-year-old female patient who presents to the emergency room with chief complaint of chest pain, shortness of breath, and dizziness for two days prior to emergency room arrival. The patient describes the chest pain as unprovoked, intermittent, pressure-like in nature, left-sided and nonradiating. Associated symptoms include shortness of breath and dizziness. She denies any alleviating or aggravating factors. Initial twelve lead electrocardiogram reveals normal sinus rhythm without any significant ST segment changes. Troponin levels have been negative. Significant past medical history includes hypertension, dyslipidemia, type 2 diabetes mellitus, and morbid obesity. The patient also has a significant family cardiac history including her father and brother who have coronary artery disease with stent placement. The patient states that she was scheduled to undergo an outpatient stress test this month, but the cardiology office has canceled her appointment twice. Past Medical History Past medical history reviewed. No other significant than mentioned above. Past Surgical History Family History: Cardiovascular disease G8 MOTHER, Onset:40's - 50 G8 FATHER, Onset:40's - 50 G8 BROTHER, Onset:Childhood Diabetes mellitus G8 MOTHER Family History Family history reviewed. 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 Current Medications Current Medications Medications (Trade) Dose Ordered Sig/Presley Route PRN Reason Start Time Stop Time Status Last Admin Lisinopril (Zestril Tablet) 20 mg DAILY PO 10/19/24 10:00 10/19/24 09:29 Aspirin 81 mg DAILY PO 10/19/24 10:00 10/19/24 09:28 Atorvastatin Calcium (Lipitor) 10 mg HS PO 10/18/24 22:00 10/18/24 21:15 Ondansetron HCl (Zofran) 4 mg Q4HP PRN IV NAUSEA / VOMITING 10/18/24 14:30 Nitroglycerin (Ntrostat Sublingual) 0.4 mg Q5MINP PRN SL FOR CHEST PAIN 10/18/24 14:30 Morphine Sulfate 2 mg Q30M PRN IV FOR CHEST PAIN 10/18/24 14:30 Diagnostic Test (Pha) (Accu-Chek Comfort Curve T) 1 strip ACHS 10/18/24 22:00 10/19/24 06:39 Insulin Human Regular (InsuLIN R) ACHS SC 10/18/24 22:00 10/19/24 06:46 Dextrose 50 ml UD PRN IV Blood Sugar LESS THAN 60 10/18/24 19:45 Review of Systems Constitutional: No symptom reported Ears, Nose, & Throat: No symptom reported Eyes: No symptom reported Neurological: Dizziness Pulmonary/Respiratory: Shortness of breath Cardiovascular: Chest pain Gastrointestinal: No symptom reported Genitourinary: No symptom reported Musculoskeletal: No symptom reported Skin: No symptom reported Psychiatric: No symptom reported Endocrine: No symptom reported Hematologic/Lymphatic: No symptom reported Vital Signs Vital Signs Date Time Temp Pulse Resp B/P (MAP) Pulse Ox O2 Delivery O2 Flow Rate FiO2 10/19/24 09:29 143/90 10/19/24 09:00 98.9 84 19 93 98.9 10/18/24 15:48 Room Air* 0 21 Physical Exam General Appearance: Cooperative. Obesity Pulmonary/Respiratory: Clear, bilateral breaths sounds. Cardiovascular/Chest: Regular rate and rhythm. Peripheral Pulses: 2+ Radial (R). 2+ Radial (L). 2+ Pedal (R). 2+ Pedal (L) Abdominal Exam: Normal bowel sounds. Ankle Exam: Negative ankle edema Lower extremities: No edema to bilateral lower extremities. Trace edema noted to patient's bilateral feet Neuro/Mental Status: A/OX4, coherent. Thoughts/Psych: Normal thought pattern. Appropriate mood and affect. Good judgment and insight. Appearance: No acute distress. Skin Exam: Normal inspection. Normal color. Warm and dry. Labs/Diagnostic Data Labs Test 10/19/24 09:44 10/19/24 09:01 10/19/24 06:38 10/19/24 04:57 Range/Units Urine Opiates Screen Neg NEGATIVE Urine Fentanyl Screen Neg NEGATIVE Urine Barbiturates Screen Neg NEGATIVE Urine Phencyclidine Screen Neg NEGATIVE Urine Amphetamines Screen Neg NEGATIVE Urine Benzodiazepines Screen Neg NEGATIVE Urine Cocaine Screen Neg NEGATIVE Urine Cannabinoids Screen Neg NEGATIVE POC Glucose 142 H 70-106 mg/dl Sodium Level 137 136-145 mmol/L Potassium Level 3.7 3.5-5.1 mmol/L Chloride Level 104 98-107 mmol/L Carbon Dioxide Level 22 20-31 mmol/L Anion Gap 11 5-15 Blood Urea Nitrogen 6 L 9-23 mg/dL Creatinine 0.66 0.550-1.02 mg/dL Glomerular Filtration Rate Calc 113 >90 mL/min BUN/Creatinine Ratio 9.1 L 10.0-20.0 Serum Glucose 104 74-106 mg/dL Calcium Level 8.9 8.7-10.4 mg/dL Magnesium Level 2.4 1.6-2.6 mg/dL Triglycerides Level 192 H < 150 mg/dL Cholesterol Level 190 < 200 mg/dL LDL Cholesterol 122 H < 100 mg/dL HDL Cholesterol 45 40-59 mg/dL Test 10/18/24 09:23 10/18/24 08:45 10/18/24 08:25 Range/Units Troponin I High Sensitivity < 3 L </=34 ng/L Urine Color Light-yellow Yellow Urine Clarity Clear Clear Urine pH 6.0 5.0-9.0 Urine Specific [place] 1.017 1.001-1.035 Urine Protein Negative Negative Urine Ketones Negative Negative Urine Blood Negative Negative /uL Urine Nitrite Negative Negative Urine Bilirubin Negative Negative Urine Urobilinogen Normal Negative mg/dL Urine Leukocyte Esterase Negative Negative /uL Urine RBC 1 0 - 4 /hpf Urine Microscopic WBC 1 0-5 /HPF Urine Squamous Epithelial Cells Few <5 /hpf Urine Bacteria None seen None Seen /hpf Urine Mucus Few None Seen Urine Glucose Normal Normal mg/dL White Blood Count 9.2 4.4-10.8 10^3/uL Red Blood Count 4.60 4.0-5.20 10^6/uL Hemoglobin 13.1 12.2-16.2 g/dL Hematocrit 38.8 36.0-46.0 % Mean Corpuscular Volume 84.4 80.0-100.0 fL Mean Corpuscular Hemoglobin 28.4 28.0-32.0 pg Mean Corpuscular Hemoglobin Concent 33.7 32.0-36.0 g/dL Red Cell Distribution Width 14.2 11.8-14.3 % Platelet Count 344 140-450 10^3/uL Mean Platelet Volume 8.0 6.9-10.8 fL Neutrophils (%) (Auto) 59.6 37.0-80.0 % Lymphocytes (%) (Auto) 30.9 10.0-50.0 % Monocytes (%) (Auto) 6.8 0.0-12.0 % Eosinophils (%) (Auto) 2.1 0.0-7.0 % Basophils (%) (Auto) 0.6 0.0-2.0 % Neutrophils # (Auto) 5.5 1.6-8.6 10 ^3/uL Lymphocytes # (Auto) 2.9 0.4-5.4 10 ^3/uL Monocytes # (Auto) 0.6 0-1.3 10 ^3/uL Eosinophils # (Auto) 0.2 0-0.8 10 ^3/uL Basophils # (Auto) 0.1 0-0.2 10 ^3/uL Nucleated Red Blood Cells 0.0 % Assessment Chest pain, rule out coronary ischemia Rule out structural heart disease Hypertensive urgency, resolved Dyslipidemia Type 2 diabetes mellitus Morbid obesity Plan/Recommendation We will continue with the following plan/recommendations (Dr. Wang): * Transthoracic echocardiogram to evaluate cardiac function * Chest pain protocol * HEART score: 3 points * Blood pressure control * Lipid-lowering agent * Close Cardiac surveillance * Cardiolite stress test Given the patient's clinical presentation, comorbidities, and significant family history, a Cardiolite stress test was ordered. Thank you for allowing us to care for this patient. Please call with any questions or concerns. Critical care time spent: 44 minutes This medical document was created using an electronic medical record system with voice recognition software and computerized dictation system. Although this document has been carefully reviewed, there might still be some phonetic and typographical errors. Occasional wrong-word or ``sound-alike substitutions may have occurred due to the inherent limitations of voice recognition software. These areas are purely typographical due to imperfections of the software programs and do not reflect any compromise in the patient's medical care. Please read the chart carefully and recognize, using context, where these substitutions have occurred. Plan discussed with: Patient NYHA Physical activity limitations: NA Date of Service: Oct 19, 2024 Billing Provider: FADIA HUGHES Cardiology Common Codes: [id number] INP/OBS CARE (High) Cardiology Consultation Codes: [id number] CONSULT <45MIN FADIA HUGHES Oct 19, 2024 10:59
--- NOTE | 2024-10-19 11:56 | ECG ---
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
--- NOTE | 2024-10-19 13:28 | DVHCARD ---
Cardiology Stress Test [place] Treadmill Stress Test [place] Referring MD: TWIN Benson Protocol: Jeramy (with cardiolite) Reason for referral: Chest Pain Target heart Rate:@85%: 152 Percent MPHR: 179 METS: 6.20 Resting Heart rate: 76 Resting Blood Pressure: 143/94 Exercise Heart Rate: 164 Exercise Blood Pressure: 187/96 Reason for Termination of Test: Shortness of breath Baseline EKG: Normal sinus rhythm Stress EKG: Sinus tachycardia Functional Capacity: Mildly Decreased Heart Rate Response: Adequate Blood Pressure Response: Hypertensive Clinical response: Non-ischemic Arrhythmia?: No (Artifact throughout test) Cardiolite Injected?: Yes ST-T Changes: Non/Minimal Probability of Inducible [place]: Perfusion result pending Date of Service: Oct 19, 2024 Billing Provider: FADIA BENSON Cardiology Common Codes: PROCEDURE ONLY Treadmill W/Cardiolite Nuclear: [id number], INTERP, RPT FADIA BENSON Oct 19, 2024 13:28
--- NOTE | 2024-10-19 16:01 | DVHPN2 ---
Subjective Relates no current chest pain. Awaiting stress test results. Waiting bed upstairs Reviewed: Care Plan Changes from previous H/P or p: No Changes Objective Vitals Vital Signs Date Time Temp Pulse Resp B/P (MAP) Pulse Ox O2 Delivery O2 Flow Rate FiO2 10/19/24 09:29 143/90 10/19/24 09:00 98.9 84 19 93 98.9 10/18/24 15:48 Room Air* 0 21 Exam General: NAD HEENT: normocephalic/ atraumatic CV: RRR Lung:CTAB Abdomen: soft, nontender, nondistended Extremities: no edema Medications Current Medications Medications Dose Ordered Sig/Presley Route Start Time Stop Time Status Last Admin Dose Admin Lisinopril 20 mg DAILY PO 10/19/24 10:00 10/19/24 09:29 20 MG Aspirin 81 mg DAILY PO 10/19/24 10:00 10/19/24 09:28 81 MG Ondansetron HCl 4 mg Q4HP PRN IV 10/18/24 14:30 Nitroglycerin 0.4 mg Q5MINP PRN SL 10/18/24 14:30 Morphine Sulfate 2 mg Q30M PRN IV 10/18/24 14:30 Diagnostic Test (Pha) 1 strip ACHS 10/18/24 22:00 10/19/24 06:39 1 STRIP Insulin Human Regular ACHS SC 10/18/24 22:00 10/19/24 06:46 2 UNITS Dextrose 50 ml UD PRN IV 10/18/24 19:45 Atorvastatin Calcium 20 mg HS PO 10/19/24 22:00 Laboratory Results Laboratory Tests 10/18/24 08:25 10/19/24 04:57 Chemistry Test 10/19/24 04:57 Calcium Level 8.9 mg/dL (8.7-10.4) Magnesium Level 2.4 mg/dL (1.6-2.6) Lipid panel Test 10/19/24 04:57 Cholesterol Level 190 mg/dL (< 200) HDL Cholesterol 45 mg/dL (40-59) Triglycerides Level 192 mg/dL (< 150) H HgA1c, TSH Test 10/19/24 04:57 10/19/24 09:44 Thyroid Stimulating Hormone (TSH) 1.49 uIU/mL (0.55-4.78) Hemoglobin A1c 6.0 % A1C (<5.7) H Urinalysis Test 10/18/24 08:45 10/19/24 09:01 Urine Color Light-yellow (Yellow) Urine Clarity Clear (Clear) Urine pH 6.0 (5.0-9.0) Urine Specific [place] 1.017 (1.001-1.035) Urine Protein Negative (Negative) Urine Ketones Negative (Negative) Urine Blood Negative /uL (Negative) Urine Nitrite Negative (Negative) Urine Bilirubin Negative (Negative) Urine Urobilinogen Normal mg/dL (Negative) Urine Leukocyte Esterase Negative /uL (Negative) Urine RBC 1 /hpf (0 - 4) Urine Microscopic WBC 1 /HPF (0-5) Urine Squamous Epithelial Cells Few /hpf (<5) Urine Bacteria None seen /hpf (None Seen) Urine Mucus Few (None Seen) Urine Glucose Normal mg/dL (Normal) Urine Test Negative (Negative) Assessment/Plan Assessment/Plan 39-year-old female: #Atypical chest pain, associated with dizziness. -relates pain related to stress in her life. non exertional -cardiology consulted. Lexiscan, echo pending -heart score 3. HS trop negative, EKG NSR. #DM-2 -SSI med, A1C, CCD med diet other chronic medical issues: #HTN #HLD #Obesity Plan discussed with: Patient My Orders Orders - JH BEEBE MD Procedure Category Date Status Time Consistent DIET 10/19/24 Transmitted Carb(Ccho)Diabetes Dinner Date of Service: Oct 19, 2024 Billing Provider: JH BEEBE MD Common Visit Codes: [id number] INP/OBS CARE(MOD) JH BEEBE MD Oct 19, 2024 16:01
[2024-10-19 17:00] VITALS: BP 115/77; PULSE 85; RESP 18; TEMP 97.5; O2SAT 93
[2024-10-19 21:00] VITALS: BP 123/68; PULSE 91; RESP 19; TEMP 97.3; O2SAT 96
[2024-10-19] MEDS: ATORVASTATIN 20 MG TAB PO SCH (23:49)
[2024-10-20] VITALS (8 sets, daily range): BP systolic 113–136; BP diastolic 70–80; PULSE 72–88; RESP 16–18; TEMP 97.9–98.6; O2SAT 94–97
[2024-10-20 07:17] LABS: Hematocrit 36.5 % (36.0-46.0); Hemoglobin 12.4 g/dL (12.2-16.2); Mean Corpuscular Hemoglobin 28.5 pg (28.0-32.0); Mean Corpuscular Volume 83.6 fL (80.0-100.0); Nucleated Red Blood Cells % 0.0 %
[2024-10-20 07:31] LABS: Alanine Aminotransferase 19 U/L (7-40); Albumin 4.3 g/dL (3.2-4.8); Anion Gap 10 (5-15); BUN/Creatinine Ratio 13.0 (10.0-20.0); Bilirubin, Total 0.4 mg/dL (0.2-1.0); Blood Urea Nitrogen 9 mg/dL (9-23); Calcium 8.9 mg/dL (8.7-10.4); Carbon Dioxide 25 mmol/L (20-31); Chloride 103 mmol/L (98-107); Potassium 3.7 mmol/L (3.5-5.1); Sodium 138 mmol/L (136-145); Total Protein 7.0 g/dL (5.7-8.2)
[2024-10-20 07:32] LABS: Alkaline Phosphatase 46 U/L (46-116); Glucose 120 mg/dL (74-106)
--- NOTE | 2024-10-20 13:39 | DVHSR ---
APPROVED REPORT EXAM: Two-dimensional and M-mode echocardiogram with Doppler and color Doppler. Blood Pressure: 142/90 mmHg INDICATION Cardiac function RISK FACTORS Height: 69, Weight: 220 DIMENSIONS LVDd4.4 (3.8-5.7cm)LA (2D)3.7 (1.9-4.0cm)Aortic Root3.8 (2.0-3.7cm) LVDs2.6 (2.5-4.0cm)LA (MM) (1.9-4.0cm)Aortic Cusp Exc1.9 (1.5-2.0cm) EF (%) 72.0 (55-70%)Rt. Atrium3.9 (1.9-4.0cm)Asc. Aorta cm IVSd1.2 (0.7-1.1cm)RV (D) (1.8-2.4cm) PWd1.2 (0.7-1.1cm) Mitral Valve MitralMitral Stenosis E wave0.75m/sMV Mean GR.mmHg A wave0.64m/sMV Peak GR.mmHg E/A ratio1.22D MVAcm2 DECEL [id number] 1/2 Cgta12dg IVRTmsDop MVA3.33cm2 Aortic Valve Aortic ValveAortic Stenosis V11.10m/Felipe Mean GR.4mmHg V21.36m/Felipe Peak GR.7mmHg LVOT Diameter2.0 (1.8-2.4cm)Doppler AVA2.54cm2 Pulmonic Valve V20.94m/s Conclusion Sinus rhythm. Concentric LVH with aortic root enlargement. Mild aortic sclerosis. Mild mitral annular calcification. Tricuspid and pulmonic or structurally no rmal. Left ventricular systolic performance is preserved at 55-60% with normal RV function. Doppler reveals mild tricuspid regurgitation trace mitral insufficiency. Trace aortic insufficiency. No pericardial effusion masses or vegetations discernible.
--- NOTE | 2024-10-20 13:59 | DVHPN2 ---
Consult Progress Note Subjective Patient reports: No new complaints Objective vital signs Vital Sign Date Time Temp Pulse Resp B/P (MAP) Pulse Ox O2 Delivery O2 Flow Rate FiO2 10/20/24 13:00 98.6 78 18 136/80 (98) 96 98.6 10/20/24 07:30 Room Air* 0 21 Total Intake and Output 10/19/24 10/19/24 10/20/24 15:00 23:00 07:00 Intake Total 120 ml Output Total 1 ml Balance 119 ml medications Current Medications Medications Dose Ordered Sig/Presley Route Start Time Stop Time Status Last Admin Dose Admin Lisinopril 20 mg DAILY PO 10/19/24 10:00 10/20/24 09:58 20 MG Aspirin 81 mg DAILY PO 10/19/24 10:00 10/20/24 09:59 81 MG Ondansetron HCl 4 mg Q4HP PRN IV 10/18/24 14:30 Nitroglycerin 0.4 mg Q5MINP PRN SL 10/18/24 14:30 Morphine Sulfate 2 mg Q30M PRN IV 10/18/24 14:30 Diagnostic Test (Pha) 1 strip ACHS 10/18/24 22:00 10/20/24 10:03 1 STRIP Insulin Human Regular ACHS SC 10/18/24 22:00 10/19/24 06:46 2 UNITS Dextrose 50 ml UD PRN IV 10/18/24 19:45 Atorvastatin Calcium 20 mg HS PO 10/19/24 22:00 10/19/24 23:49 20 MG Examination: CVS:Normal (Telemetry reviewed, consistent with sinus rhythm at 84 bpm, no overnight events.) laboratory and microbiology Laboratory Tests 10/20/24 06:31 Test 10/20/24 06:31 Range/Units Serum Glucose 120 H 74-106 mg/dL Problem List/Assessment/Plan Problem List/Assessment/Plan Chest pain, rule out coronary ischemia Rule out structural heart disease Hypertensive urgency, resolved Dyslipidemia Type 2 diabetes mellitus Morbid obesity Plan/Recommendation We will continue with the following plan/recommendations (Dr. Wang): * Transthoracic echocardiogram with normal EF (55-60%), LVH * Chest pain protocol * HEART score: 3 points * Blood pressure control * Lipid-lowering agent * Close Cardiac surveillance * Cardiolite stress testshowing inferior apical mid inducible ischemia. Case Discussed with Dr Wang. Given significant symptoms, comorbidities HTN, HLD, diabetes recommend cardiac catheterization +/- PCI. All risks, benefits, and alternatives of cardiac catheterization explained to the patient including the risk of stroke, [place], , coronary perforation, pericardial tamponade, contrast induced nephropathy, need for emergent CABG, mechanical support, mechanical ventilation, and bleeding from vascular complications from the procedure. Patient is agreeable to proceed with procedure. We will plan for Tuesday, NPO after midnight Tuesday night. Critical care, time spent: 40 minutes This medical document was created using an electronic medical record system with voice recognition software and computerized dictation system. Although this document has been carefully reviewed, there might still be some phonetic and typographical errors. Occasional wrong-word or ``sound-alike substitutions may have occurred due to the inherent limitations of voice recognition software. These areas are purely typographical due to imperfections of the software programs and do not reflect any compromise in the patient's medical care. Please read the chart carefully and recognize, using context, where these substitutions have occurred. Thank you for allowing me to participate in the management of this patient. Plan discussed with: Patient, Spouse Date of Service: Oct 20, 2024 Billing Provider: LATONYA PORTILLO Common Visit Codes: [id number] INP/OBS CARE(HIGH), [id number] CARE 30-74 MIN LATONYA PORTILLO Oct 20, 2024 13:59
--- NOTE | 2024-10-20 17:34 | DVHPN2 ---
Subjective Patient is seen at bedside today, here for chest pain. Chest pain has improved, doing well right now. Reviewed: Care Plan Changes from previous H/P or p: No Changes General: Per HPI Objective Vitals Vital Signs Date Time Temp Pulse Resp B/P (MAP) Pulse Ox O2 Delivery O2 Flow Rate FiO2 10/20/24 13:00 98.6 78 18 136/80 (98) 96 98.6 10/20/24 07:30 Room Air* 0 21 Intake/Output Intake and Output 10/20/24 06:59 Intake Total 120 ml Output Total 1 ml Balance 119 ml Intake Oral 120 ml Output Urine Total 1 ml Exam GEN: Healthy appearing, well-developed, NAD. HEENT: NC/AT; MMM. CV: RRR, no m/r/g. LUNGS: CTAB, no w/r/c. ABD: Soft, NT/ND, NBS, no masses or organomegaly. EXT: skin Warm, well perfused. no rashes. No clubbing, cyanosis, or edema. NEURO: Ambulating with no limitations. No focal deficits. Medications Current Medications Medications Dose Ordered Sig/Presley Route Start Time Stop Time Status Last Admin Dose Admin Lisinopril 20 mg DAILY PO 10/19/24 10:00 10/20/24 09:58 20 MG Aspirin 81 mg DAILY PO 10/19/24 10:00 10/20/24 09:59 81 MG Ondansetron HCl 4 mg Q4HP PRN IV 10/18/24 14:30 Nitroglycerin 0.4 mg Q5MINP PRN SL 10/18/24 14:30 Morphine Sulfate 2 mg Q30M PRN IV 10/18/24 14:30 Diagnostic Test (Pha) 1 strip ACHS 10/18/24 22:00 10/20/24 16:42 1 STRIP Insulin Human Regular ACHS SC 10/18/24 22:00 10/19/24 06:46 2 UNITS Dextrose 50 ml UD PRN IV 10/18/24 19:45 Atorvastatin Calcium 20 mg HS PO 10/19/24 22:00 10/19/24 23:49 20 MG Laboratory Results Laboratory Tests 10/20/24 06:31 Chemistry Test 10/20/24 06:31 Albumin 4.3 g/dL (3.2-4.8) Calcium Level 8.9 mg/dL (8.7-10.4) Total Protein 7.0 g/dL (5.7-8.2) LFT Test 10/20/24 06:31 Alanine Aminotransferase (ALT) 19 U/L (7-40) Alkaline Phosphatase 46 U/L (46-116) Aspartate Amino Transferase (AST) 18 U/L (13-40) Total Bilirubin 0.4 mg/dL (0.2-1.0) Urinalysis Test 10/18/24 08:45 10/19/24 09:01 Urine Color Light-yellow (Yellow) Urine Clarity Clear (Clear) Urine pH 6.0 (5.0-9.0) Urine Specific [place] 1.017 (1.001-1.035) Urine Protein Negative (Negative) Urine Ketones Negative (Negative) Urine Blood Negative /uL (Negative) Urine Nitrite Negative (Negative) Urine Bilirubin Negative (Negative) Urine Urobilinogen Normal mg/dL (Negative) Urine Leukocyte Esterase Negative /uL (Negative) Urine RBC 1 /hpf (0 - 4) Urine Microscopic WBC 1 /HPF (0-5) Urine Squamous Epithelial Cells Few /hpf (<5) Urine Bacteria None seen /hpf (None Seen) Urine Mucus Few (None Seen) Urine Glucose Normal mg/dL (Normal) Urine Test Negative (Negative) Labs and/or images reviewed: Labs reviewed by me, Image(s) reviewed by me Assessment/Plan Assessment/Plan 10/20: Patient has been seen by Cardiology today. Cardiolite test is done, and showing inferior apical mid inducible ischemia... The plan for left heart catheterization Tuesday. #Atypical chest pain, associated with dizziness. -relates pain related to stress in her life. non exertional -cardiology consulted. Lexiscan, echo pending -heart score 3. HS trop negative, EKG NSR. #DM-2 -SSI med, A1C, CCD med diet other chronic medical issues: #HTN #HLD #Obesity Plan discussed with: Patient Date of Service: Oct 20, 2024 Billing Provider: ALFIE BEAVER MD Common Visit Codes: [id number] INP/OBS CARE(HIGH) ALFIE BEAVER MD Oct 20, 2024 17:34
[2024-10-21] VITALS (9 sets, daily range): BP systolic 111–131; BP diastolic 73–86; PULSE 70–88; RESP 16–20; TEMP 98.1–98.8; O2SAT 95–98
[2024-10-21 06:08] LABS: Chloride 105 mmol/L (98-107); Potassium 3.8 mmol/L (3.5-5.1); Sodium 140 mmol/L (136-145)
[2024-10-21 06:09] LABS: Anion Gap 10 (5-15); Carbon Dioxide 25 mmol/L (20-31)
[2024-10-21 06:14] LABS: BUN/Creatinine Ratio 13.6 (10.0-20.0); Blood Urea Nitrogen 9 mg/dL (9-23)
[2024-10-21 06:37] LABS: Calcium 8.6 mg/dL (8.7-10.4); Glucose 127 mg/dL (74-106)
--- NOTE | 2024-10-21 12:02 | DVHPN2 ---
Consult Progress Note Subjective Patient reports: No new complaints Objective vital signs Vital Sign Date Time Temp Pulse Resp B/P (MAP) Pulse Ox O2 Delivery O2 Flow Rate FiO2 10/21/24 10:27 118/76 10/21/24 09:00 98.1 76 16 97 98.1 10/21/24 07:30 Room Air* 0 21 Total Intake and Output 10/20/24 10/20/24 10/21/24 15:00 23:00 07:00 Intake Total 500 ml 1550 ml 360 ml Output Total 4 ml Balance 500 ml 1546 ml 360 ml medications Current Medications Medications Dose Ordered Sig/Presley Route Start Time Stop Time Status Last Admin Dose Admin Lisinopril 20 mg DAILY PO 10/19/24 10:00 10/21/24 10:27 20 MG Aspirin 81 mg DAILY PO 10/19/24 10:00 10/21/24 10:26 81 MG Ondansetron HCl 4 mg Q4HP PRN IV 10/18/24 14:30 Nitroglycerin 0.4 mg Q5MINP PRN SL 10/18/24 14:30 Morphine Sulfate 2 mg Q30M PRN IV 10/18/24 14:30 Diagnostic Test (Pha) 1 strip ACHS 10/18/24 22:00 10/21/24 10:27 1 STRIP Insulin Human Regular ACHS SC 10/18/24 22:00 10/21/24 06:31 2 UNITS Dextrose 50 ml UD PRN IV 10/18/24 19:45 Atorvastatin Calcium 20 mg HS PO 10/19/24 22:00 10/20/24 22:18 20 MG laboratory and microbiology Laboratory Tests 10/21/24 04:46 10/20/24 06:31 Test 10/21/24 04:46 Range/Units Serum Glucose 127 H 74-106 mg/dL Problem List/Assessment/Plan Problem List/Assessment/Plan Chest pain, rule out coronary ischemia Rule out structural heart disease Hypertensive urgency, resolved Dyslipidemia Type 2 diabetes mellitus Morbid obesity Plan/Recommendation We will continue with the following plan/recommendations (Dr. Wang): * Transthoracic echocardiogram with normal EF (55-60%), LVH * Chest pain protocol * HEART score: 3 points * Blood pressure control * Lipid-lowering agent * Close Cardiac surveillance * Cardiolite stress testshowing inferior apical mid inducible ischemia. Case Discussed with Dr Wang. Given significant symptoms, comorbidities HTN, HLD, diabetes recommend cardiac catheterization +/- PCI. All risks, benefits, and alternatives of cardiac catheterization explained to the patient including the risk of stroke, [place], , coronary perforation, pericardial tamponade, contrast induced nephropathy, need for emergent CABG, mechanical support, mechanical ventilation, and bleeding from vascular complications from the procedure. Patient is agreeable to proceed with procedure. NPO after midnight. This medical document was created using an electronic medical record system with voice recognition software and computerized dictation system. Although this document has been carefully reviewed, there might still be some phonetic and typographical errors. Occasional wrong-word or ``sound-alike substitutions may have occurred due to the inherent limitations of voice recognition software. These areas are purely typographical due to imperfections of the software programs and do not reflect any compromise in the patient's medical care. Please read the chart carefully and recognize, using context, where these substitutions have occurred. Thank you for allowing me to participate in the management of this patient. Plan discussed with: Patient Date of Service: Oct 21, 2024 Billing Provider: LATONYA PORTILLO Common Visit Codes: [id number] INP/OBS CARE(HIGH) LATONYA PORTILLO Oct 21, 2024 12:02
--- NOTE | 2024-10-21 19:41 | DVHPN2 ---
Subjective Patient is seen at bedside today, here for chest pain. Chest pain has improved, doing well right now. Reviewed: Care Plan Changes from previous H/P or p: No Changes General: Per HPI Objective Vitals Vital Signs Date Time Temp Pulse Resp B/P (MAP) Pulse Ox O2 Delivery O2 Flow Rate FiO2 10/21/24 17:00 98.8 70 20 131/86 (101) 97 98.8 10/21/24 07:30 Room Air* 0 21 Intake/Output Intake and Output 10/21/24 07:00 Intake Total 2410 ml Output Total 4 ml Balance 2406 ml Intake Oral 2410 ml Output Urine Total 4 ml # Voids 4 # Bowel Movements 2 Exam GEN: Healthy appearing, well-developed, NAD. HEENT: NC/AT; MMM. CV: RRR, no m/r/g. LUNGS: CTAB, no w/r/c. ABD: Soft, NT/ND, NBS, no masses or organomegaly. EXT: skin Warm, well perfused. no rashes. No clubbing, cyanosis, or edema. NEURO: Ambulating with no limitations. No focal deficits. Medications Current Medications Medications Dose Ordered Sig/Presley Route Start Time Stop Time Status Last Admin Dose Admin Lisinopril 20 mg DAILY PO 10/19/24 10:00 10/21/24 10:27 20 MG Aspirin 81 mg DAILY PO 10/19/24 10:00 10/21/24 10:26 81 MG Ondansetron HCl 4 mg Q4HP PRN IV 10/18/24 14:30 Nitroglycerin 0.4 mg Q5MINP PRN SL 10/18/24 14:30 Morphine Sulfate 2 mg Q30M PRN IV 10/18/24 14:30 Diagnostic Test (Pha) 1 strip ACHS 10/18/24 22:00 10/21/24 19:03 1 STRIP Insulin Human Regular ACHS SC 10/18/24 22:00 10/21/24 06:31 2 UNITS Dextrose 50 ml UD PRN IV 10/18/24 19:45 Atorvastatin Calcium 20 mg HS PO 10/19/24 22:00 10/20/24 22:18 20 MG Laboratory Results Laboratory Tests 10/20/24 06:31 10/21/24 04:46 Chemistry Test 10/21/24 04:46 Calcium Level 8.6 mg/dL (8.7-10.4) L Urinalysis Test 10/18/24 08:45 10/19/24 09:01 Urine Color Light-yellow (Yellow) Urine Clarity Clear (Clear) Urine pH 6.0 (5.0-9.0) Urine Specific [place] 1.017 (1.001-1.035) Urine Protein Negative (Negative) Urine Ketones Negative (Negative) Urine Blood Negative /uL (Negative) Urine Nitrite Negative (Negative) Urine Bilirubin Negative (Negative) Urine Urobilinogen Normal mg/dL (Negative) Urine Leukocyte Esterase Negative /uL (Negative) Urine RBC 1 /hpf (0 - 4) Urine Microscopic WBC 1 /HPF (0-5) Urine Squamous Epithelial Cells Few /hpf (<5) Urine Bacteria None seen /hpf (None Seen) Urine Mucus Few (None Seen) Urine Glucose Normal mg/dL (Normal) Urine Test Negative (Negative) Labs and/or images reviewed: Labs reviewed by me, Image(s) reviewed by me Assessment/Plan Assessment/Plan 10/20: Patient has been seen by Cardiology today. Cardiolite test is done, and showing inferior apical mid inducible ischemia... The plan for left heart catheterization Tuesday. 10/21: By cardiology planning for left heart catheterization angiogram tomorrow, patient is stable otherwise. #Atypical chest pain, associated with dizziness. -relates pain related to stress in her life. non exertional -cardiology consulted. Lexiscan, echo pending -heart score 3. HS trop negative, EKG NSR. #DM-2 -SSI med, A1C, CCD med diet other chronic medical issues: #HTN #HLD #Obesity Plan discussed with: Patient Date of Service: Oct 21, 2024 Billing Provider: ALFIE BEAVER MD Common Visit Codes: [id number] INP/OBS CARE(HIGH) ALFIE BEAVER MD Oct 21, 2024 19:41
[2024-10-22] VITALS (13 sets, daily range): BP systolic 113–150; BP diastolic 75–93; PULSE 65–90; RESP 9–20; TEMP 98–98.4; O2SAT 95–100
[2024-10-22] MEDS: IODIXANOL 320MG/ML 100ML BTL IV ONE (14:13)
[2024-10-22] MEDS: HEPARIN SODIUM (PORCINE) 5000 UNITS/ML 1ML VIAL ONE (14:22)
[2024-10-22] MEDS: MIDAZOLAM HCL 2MG/2ML 2ml VIAL (1mg/ml) ONE (14:22)
[2024-10-22] MEDS: fentaNYL CITRATE 100 MCG/2 ML VL ONE (14:22)
[2024-10-22] MEDS: VERAPAMIL 2.5MG/ML INJ 2ML VIAL IV ONE (14:22)
[2024-10-22] MEDS: LIDOCAINE 2%HCL (LOCAL ANESTH.) INJ 20ML MDV ONE (14:22)
--- NOTE | 2024-10-22 15:05 | DVHOP2 ---
Operative Report - 2 Report Details Date: 10/22/24 Preop Diagnosis: CAD Postop Diagnosis: Normal coronaries Surgeon: Johnathan Wang MD Anesthesiologist: No sedation or anesthesia given. Anesthesia: Local (No sedation given per patient's request. Local anesthetic to right wrist only) Consent: The patient was informed of the risks and benefits of the procedure. These include but are not limited to complications of anesthesia, postoperative infection, incomplete relief of symptoms, recurrence of symptoms, damage to blood vessels, nerves and tendons, deep venous thrombosis, pulmonary embolism and possible need for repeat surgery in the future. Complications: No complications Findings: Normal coronaries Indications for Surgery: Chest pain. Abnormal stress test. Name of Procedure Performed Left heart catheterization. Bilateral cine coronary angiography. Left ventriculography. Procedure Details Procedure Details: Prior local anesthesia with 2% lidocaine to the right wrist and full informed consent obtained the patient was prepped and draped in usual fashion followed by placement of a six Armenian sheath into the radial artery through which a multipurpose catheter was used to cannulate RCA and left ventricle. A JL3 five was used to cannulate the left main. No complications. Hemodynamics: Aortic blood pressure was 110/70. End-diastolic pressure was 12 without gradient across the aortic valve on pullback. Coronary anatomy: The RCA is nondominant large and normal. The left main is large and normal. Left anterior descending coronary artery is a large vessel. It is normal in its proximal mid and distal segments. The diagonals and septals are normal. The circumflex is large and dominant. Giving off the PDA and obtuse marginal branches which are normal. Circumflex itself is normal. Ventriculography in the [place] projection shows an EF of 55% Impression: 1. Normal left ventricular end-diastolic pressure at rest. 2. Normal ejection fraction. 3. Normal coronary arteries. Recommendations medical therapy is warranted continuous-flow modification. Condition Good Disposition Date of Service: Oct 22, 2024 Billing Provider: JOHNATHAN WANG Sr., MD Cardiology Common Codes: [id number] INP/OBS CARE (High) Cardiology Procedure Codes: [id number] HEART CATH W/INTRA INJ JOHNATHAN WANG Sr., MD Oct 22, 2024 15:05
--- NOTE | 2024-10-22 16:30 | DVHPN2 ---
Subjective Patient is seen at bedside today, here for chest pain. Chest pain has improved, doing well right now. Reviewed: Care Plan Changes from previous H/P or p: No Changes General: Per HPI Objective Vitals Vital Signs Date Time Temp Pulse Resp B/P (MAP) Pulse Ox O2 Delivery O2 Flow Rate FiO2 10/22/24 16:00 98.0 90 9 120/93 (102) 96 98.0 10/22/24 07:30 Room Air* 0 21 Intake/Output Intake and Output 10/22/24 07:00 Intake Total 1580 ml Balance 1580 ml Intake Oral 1580 ml # Voids 6 # Bowel Movements 2 Exam GEN: Healthy appearing, well-developed, NAD. HEENT: NC/AT; MMM. CV: RRR, no m/r/g. LUNGS: CTAB, no w/r/c. ABD: Soft, NT/ND, NBS, no masses or organomegaly. EXT: skin Warm, well perfused. no rashes. No clubbing, cyanosis, or edema. NEURO: Ambulating with no limitations. No focal deficits. Medications Current Medications Medications Dose Ordered Sig/Presley Route Start Time Stop Time Status Last Admin Dose Admin Lisinopril 20 mg DAILY PO 10/19/24 10:00 10/22/24 09:40 20 MG Aspirin 81 mg DAILY PO 10/19/24 10:00 10/22/24 09:39 81 MG Ondansetron HCl 4 mg Q4HP PRN IV 10/18/24 14:30 Nitroglycerin 0.4 mg Q5MINP PRN SL 10/18/24 14:30 Morphine Sulfate 2 mg Q30M PRN IV 10/18/24 14:30 Diagnostic Test (Pha) 1 strip ACHS 10/18/24 22:00 10/22/24 10:42 1 STRIP Insulin Human Regular ACHS SC 10/18/24 22:00 10/21/24 23:09 3 UNITS Dextrose 50 ml UD PRN IV 10/18/24 19:45 Atorvastatin Calcium 20 mg HS PO 10/19/24 22:00 10/21/24 23:11 20 MG Laboratory Results Laboratory Tests 10/20/24 06:31 10/21/24 04:46 Urinalysis Test 10/18/24 08:45 10/19/24 09:01 Urine Color Light-yellow (Yellow) Urine Clarity Clear (Clear) Urine pH 6.0 (5.0-9.0) Urine Specific [place] 1.017 (1.001-1.035) Urine Protein Negative (Negative) Urine Ketones Negative (Negative) Urine Blood Negative /uL (Negative) Urine Nitrite Negative (Negative) Urine Bilirubin Negative (Negative) Urine Urobilinogen Normal mg/dL (Negative) Urine Leukocyte Esterase Negative /uL (Negative) Urine RBC 1 /hpf (0 - 4) Urine Microscopic WBC 1 /HPF (0-5) Urine Squamous Epithelial Cells Few /hpf (<5) Urine Bacteria None seen /hpf (None Seen) Urine Mucus Few (None Seen) Urine Glucose Normal mg/dL (Normal) Urine Test Negative (Negative) Labs and/or images reviewed: Labs reviewed by me, Image(s) reviewed by me Assessment/Plan Assessment/Plan 10/20: Patient has been seen by Cardiology today. Cardiolite test is done, and showing inferior apical mid inducible ischemia... The plan for left heart catheterization Tuesday. 10/21: By cardiology planning for left heart catheterization angiogram tomorrow, patient is stable otherwise. 10/22 taken [facility] today. will fu with cardiology for recommendations. #Atypical chest pain, associated with dizziness. -relates pain related to stress in her life. non exertional -cardiology consulted. Lexiscan, echo pending -heart score 3. HS trop negative, EKG NSR. #DM-2 -SSI med, A1C, CCD med diet other chronic medical issues: #HTN #HLD #Obesity Plan discussed with: Patient Date of Service: Oct 22, 2024 Billing Provider: ALFIE BEAVER MD Common Visit Codes: [id number] INP/OBS CARE(HIGH) ALFIE BEAVER MD Oct 22, 2024 16:30
[2024-10-23] VITALS (10 sets, daily range): BP systolic 112–131; BP diastolic 71–85; PULSE 71–97; RESP 17–20; TEMP 98.1–99; O2SAT 96–98
[2024-10-23 07:33] LABS: Hematocrit 38.8 % (36.0-46.0); Hemoglobin 13.1 g/dL (12.2-16.2); Mean Corpuscular Hemoglobin 28.7 pg (28.0-32.0); Mean Corpuscular Volume 85.2 fL (80.0-100.0); Nucleated Red Blood Cells % 0.0 %
[2024-10-23 07:48] LABS: Alanine Aminotransferase 13 U/L (7-40); Albumin 4.3 g/dL (3.2-4.8); Anion Gap 10 (5-15); BUN/Creatinine Ratio 11.6 (10.0-20.0); Bilirubin, Total 0.4 mg/dL (0.2-1.0); Calcium 9.0 mg/dL (8.7-10.4); Carbon Dioxide 22 mmol/L (20-31); Chloride 105 mmol/L (98-107); Potassium 4.0 mmol/L (3.5-5.1); Sodium 137 mmol/L (136-145); Total Protein 7.3 g/dL (5.7-8.2)
[2024-10-23 07:50] LABS: Alkaline Phosphatase 45 U/L (46-116); Blood Urea Nitrogen 8 mg/dL (9-23); Glucose 125 mg/dL (74-106)
--- NOTE | 2024-10-23 11:03 | DVHPN2 ---
Consult Progress Note Date Seen: Oct 23, 2024 Subjective Review of Systems: CVS:Normal, RESPIRATORY:Normal, NEURO:Normal Objective vital signs Vital Sign Date Time Temp Pulse Resp B/P (MAP) Pulse Ox O2 Delivery O2 Flow Rate FiO2 10/23/24 09:44 114/80 10/23/24 09:00 98.5 73 20 98 98.5 10/23/24 08:05 Room Air* 0 21 Total Intake and Output 10/22/24 10/22/24 10/23/24 15:00 23:00 07:00 Intake Total 100 ml 150 ml Balance 100 ml 150 ml medications Current Medications Medications Dose Ordered Sig/Presley Route Start Time Stop Time Status Last Admin Dose Admin Lisinopril 20 mg DAILY PO 10/19/24 10:00 10/23/24 09:44 20 MG Aspirin 81 mg DAILY PO 10/19/24 10:00 10/23/24 09:44 81 MG Ondansetron HCl 4 mg Q4HP PRN IV 10/18/24 14:30 Nitroglycerin 0.4 mg Q5MINP PRN SL 10/18/24 14:30 Morphine Sulfate 2 mg Q30M PRN IV 10/18/24 14:30 Diagnostic Test (Pha) 1 strip ACHS 10/18/24 22:00 10/23/24 06:21 1 STRIP Insulin Human Regular ACHS SC 10/18/24 22:00 10/23/24 06:21 2 UNITS Dextrose 50 ml UD PRN IV 10/18/24 19:45 Atorvastatin Calcium 20 mg HS PO 10/19/24 22:00 10/22/24 21:25 20 MG Examination: LUNGS:Normal, CVS:Normal, NEURO:Normal laboratory and microbiology Laboratory Tests 10/23/24 07:00 Test 10/23/24 07:00 Range/Units Serum Glucose 125 H 74-106 mg/dL Problem List/Assessment/Plan Problem List/Assessment/Plan Chest pain, coronary artery disease ruled out Hypertensive urgency, resolved Dyslipidemia Type 2 diabetes mellitus Morbid obesity Plan/Recommendation (Dr. Wang) * Transthoracic echocardiogram with normal EF 55-60% with LVH * Coronary angiogram with cardiac catheterization revealed no CAD * Continue lipid-lowering agent * Recommendations for aggressive blood pressure control, diet, exercise, weight loss There is no further cardiac work-up indicated at this time. Signing off. Thank you for allowing us to care for this patient. This medical document was created using an electronic medical record system with voice recognition software and computerized dictation system. Although this document has been carefully reviewed, there might still be some phonetic and typographical errors. Occasional wrong-word or ``sound-alike substitutions may have occurred due to the inherent limitations of voice recognition software. These areas are purely typographical due to imperfections of the software programs and do not reflect any compromise in the patient's medical care. Please read the chart carefully and recognize, using context, where these substitutions have occurred. Plan discussed with: Patient, Other Date of Service: Oct 23, 2024 Billing Provider: GENIE SHARP Cardiology Common Codes: [id number] INP/OBS CARE(Mod) GENIE SHARP Oct 23, 2024 11:03
--- NOTE | 2024-10-23 15:47 | DVHDS2 ---
Discharge Summary Date of Admission Oct 18, 2024 at 14:21 Date of Discharge: Oct 23, 2024 Labs/Diagnostic Data: Laboratory Results Test 10/23/24 11:36 10/23/24 07:00 10/19/24 09:44 10/19/24 09:01 POC Glucose 96 mg/dl (70-106) White Blood Count 9.4 10^3/uL (4.4-10.8) Red Blood Count 4.56 10^6/uL (4.0-5.20) Hemoglobin 13.1 g/dL (12.2-16.2) Hematocrit 38.8 % (36.0-46.0) Mean Corpuscular Volume 85.2 fL (80.0-100.0) Mean Corpuscular Hemoglobin 28.7 pg (28.0-32.0) Mean Corpuscular Hemoglobin Concent 33.7 g/dL (32.0-36.0) Red Cell Distribution Width 14.1 % (11.8-14.3) Platelet Count 328 10^3/uL (140-450) Mean Platelet Volume 8.2 fL (6.9-10.8) Neutrophils (%) (Auto) 60.1 % (37.0-80.0) Lymphocytes (%) (Auto) 29.3 % (10.0-50.0) Monocytes (%) (Auto) 8.9 % (0.0-12.0) Eosinophils (%) (Auto) 1.3 % (0.0-7.0) Basophils (%) (Auto) 0.4 % (0.0-2.0) Neutrophils # (Auto) 5.7 10 ^3/uL (1.6-8.6) Lymphocytes # (Auto) 2.8 10 ^3/uL (0.4-5.4) Monocytes # (Auto) 0.8 10 ^3/uL (0-1.3) Eosinophils # (Auto) 0.1 10 ^3/uL (0-0.8) Basophils # (Auto) 0 10 ^3/uL (0-0.2) Nucleated Red Blood Cells 0.0 % Sodium Level 137 mmol/L (136-145) Potassium Level 4.0 mmol/L (3.5-5.1) Chloride Level 105 mmol/L (98-107) Carbon Dioxide Level 22 mmol/L (20-31) Anion Gap 10 (5-15) Blood Urea Nitrogen 8 mg/dL (9-23) Creatinine 0.69 mg/dL (0.550-1.02) Glomerular Filtration Rate Calc 112 mL/min (>90) BUN/Creatinine Ratio 11.6 (10.0-20.0) Serum Glucose 125 mg/dL (74-106) Calcium Level 9.0 mg/dL (8.7-10.4) Total Bilirubin 0.4 mg/dL (0.2-1.0) Aspartate Amino Transferase (AST) 17 U/L (13-40) Alanine Aminotransferase (ALT) 13 U/L (7-40) Alkaline Phosphatase 45 U/L (46-116) Total Protein 7.3 g/dL (5.7-8.2) Albumin 4.3 g/dL (3.2-4.8) Hemoglobin A1c 6.0 % A1C (<5.7) Urine Test Negative (Negative) Urine Opiates Screen Neg (NEGATIVE) Urine Fentanyl Screen Neg (NEGATIVE) Urine Barbiturates Screen Neg (NEGATIVE) Urine Phencyclidine Screen Neg (NEGATIVE) Urine Amphetamines Screen Neg (NEGATIVE) Urine Benzodiazepines Screen Neg (NEGATIVE) Urine Cocaine Screen Neg (NEGATIVE) Urine Cannabinoids Screen Neg (NEGATIVE) Test 10/19/24 04:57 10/18/24 09:23 10/18/24 08:45 Magnesium Level 2.4 mg/dL (1.6-2.6) Triglycerides Level 192 mg/dL (< 150) Cholesterol Level 190 mg/dL (< 200) LDL Cholesterol 122 mg/dL (< 100) HDL Cholesterol 45 mg/dL (40-59) Thyroid Stimulating Hormone (TSH) 1.49 uIU/mL (0.55-4.78) Troponin I High Sensitivity < 3 ng/L (</=34) Urine Color Light-yellow (Yellow) Urine Clarity Clear (Clear) Urine pH 6.0 (5.0-9.0) Urine Specific [place] 1.017 (1.001-1.035) Urine Protein Negative (Negative) Urine Ketones Negative (Negative) Urine Blood Negative /uL (Negative) Urine Nitrite Negative (Negative) Urine Bilirubin Negative (Negative) Urine Urobilinogen Normal mg/dL (Negative) Urine Leukocyte Esterase Negative /uL (Negative) Urine RBC 1 /hpf (0 - 4) Urine Microscopic WBC 1 /HPF (0-5) Urine Squamous Epithelial Cells Few /hpf (<5) Urine Bacteria None seen /hpf (None Seen) Urine Mucus Few (None Seen) Urine Glucose Normal mg/dL (Normal) Other Laboratory Tests 10/23/24 07:00 Brief Hx & Hospital Course: 39-year-old female presents for evaluation of chest pain. Patient reports a one day history of left-sided pressure-like chest pain that radiates to her left shoulder with associated shortness for breath and new onset of dizziness. Patient was discharged four days ago after being admitted with similar symptoms. Patient was advised to follow up with Cardiology as outpatient but she has been canceled twice for her appointment. 10/20: Patient has been seen by Cardiology today. Cardiolite test is done, and showing inferior apical mid inducible ischemia... The plan for left heart catheterization Tuesday. 10/21: By cardiology planning for left heart catheterization angiogram tomorrow, patient is stable otherwise. 10/22 taken [facility] today. will fu with cardiology for recommendations. 10/23: Symptoms have resolved. Left heart catheterization negative for any coronary artery disease, ejection fraction normal. Cardiology signed off, patient is stable for discharge as per plan below. diagnosis: Atypical chest pain, with dizziness, ACS ruled out, likely musculoskeletal Coronary artery disease, ruled out Diabetes type 2 Hypertension Hyperlipidemia Obesity Plan: -continue home meds -Follow up with PCP to review discharge - continue diabetic diet Condition at Discharge: Good Final Diagnosis/Problems List Atypical chest pain, with dizziness, ACS ruled out, likely musculoskeletal Coronary artery disease, ruled out Diabetes type 2 Hypertension Hyperlipidemia Obesity Plan: Discharge Disposition: Home Discharge Instruct/Medications Diet: Consistent carbohydrate Activity: No Restrictions, As Tolerated Follow Up/Referral: below Medications: below Scheduled Lisinopril (Lisinopril), 1 TAB PO DAILY Discharge Statement: "Patient was advised to return to the ER or call 911 if any headaches, dizziness, shortness of breath, chest pain, abdominal pain, bleeding, fevers, or worsening of medical condition. Patient was counseled about treatment plan, medications, possible side effects, patientverbalized understanding. All questions were answered to the best of my ability. This discharge took greater then 30 minutes in planning, reviewing documentation, counseling the patient, and discussing with other team members." Date of Service: Oct 23, 2024 Billing Provider: ALFIE BEAVER MD Common Visit Codes: [id number] DISCH DAY >30min ALFIE BEAVER MD Oct 23, 2024 15:47
[2024-10-23] MEDS: SODIUM CHLORIDE 0.9% 1,000 ML IV SCH (17:46)
[2024-10-24 01:00] VITALS: BP 117/69; PULSE 53; RESP 16; TEMP 97.8; O2SAT 98
[2024-10-24 05:00] VITALS: BP 113/65; PULSE 61; RESP 19; TEMP 98.7; O2SAT 99
--- NOTE | 2024-10-24 07:44 | DVHSR ---
APPROVED REPORT Exam: Nuclear Stress Test BMI: 0 Stress Test Details Stress Test: Exercise stress testing was performed using a Jeramy protocol. HR Resting HR: 76 bpmMax Heart Rate (APMHR): 179.185654 bpm Max HR Achieved: 164 bpmTarget HR (85% APMHR): 152.217464 bpm % of APMHR: 91.62 Recovery HR: 96 bpm BP Resting BP: 143/94 mmHg Recovery BP: 162/90 mmHg ECG Resting ECG: Sinus Rhythm Clinical Reason for Termination: Fatigue Exercise duration: 4 min 24 sec Nurse Comments -Recieved ambulatory, A/Ox4 on RA, connected to thermocouple tester, VS stable. PIV S/L flushes well, rev iewed POC, pt verbalized understanding. Kelley SLEEVE IRONER here to monitor exam. inventory technician administered Cardiol yte. Treadmill test performed per protocol. Pt stable, tolerated well, VS returned to baseline. Pt to follow up with last scourer for results. Stress ECG Conclusion lvef 72% normal perfusion scan no major ischemia noted NM EXAM: Myocardial Perfusion REST/STRESS Imaging Protocol: Rest Tc-99m/Stress Tc-99m 1 day Resting Data Rest SPECT myocardial perfusion imaging was performed in supine position 45 minutes following the int ravenous injection of 10.2 mCi of Tc-99m Sestamibi. Time of rest injection: 11:32 Date: 10/19/2024 Time of rest imagin:17 Date: 10/19/2024 Administration Route: IV Administration Site: Right Arm Exercise Stress At peak stress, the patient was injected intravenously with 29.5mCi of Tc-99m Sestamibi. Time of stress injection: 13:05 Date: 10/19/2024 Time of stress imagin:20 Date: 10/19/2024 Administration Route: IV Administration Site: Right Arm Gated Stress SPECT was performed 15 minutes after stress injection. The images were gated to evaluate regional wall motion and calculate left ventricular ejection fracti on. Stress only was performed in the Supine position. Nuclear Conclusion Nuclear Findings: negative for ischemia lvef 72% normal perfusion scan no major ischemia noted
[2024-10-24 08:00] VITALS: PULSE 77; RESP 16
[2024-10-24 09:00] VITALS: BP 130/76; PULSE 72; RESP 18; TEMP 98; O2SAT 99
--- NOTE | 2024-10-24 09:37 | DVHPN2 ---
Subjective Patient is seen at bedside today, here for chest pain. Chest pain has improved, doing well right now. Reviewed: Care Plan Changes from previous H/P or p: No Changes General: Per HPI Objective Vitals Vital Signs Date Time Temp Pulse Resp B/P (MAP) Pulse Ox O2 Delivery O2 Flow Rate FiO2 10/24/24 09:00 98.0 72 18 130/76 (94) 99 98.0 10/23/24 20:00 Room Air* 0 21 Intake/Output Intake and Output 10/24/24 07:00 Intake Total 4560 ml Output Total 6 ml Balance 4554 ml Intake Oral 3660 ml IV Total 900 ml Stool Total 6 ml # Voids 15 # Bowel Movements 7 Exam GEN: Healthy appearing, well-developed, NAD. HEENT: NC/AT; MMM. CV: RRR, no m/r/g. LUNGS: CTAB, no w/r/c. ABD: Soft, NT/ND, NBS, no masses or organomegaly. EXT: skin Warm, well perfused. no rashes. No clubbing, cyanosis, or edema. NEURO: Ambulating with no limitations. No focal deficits. Medications Current Medications Medications Dose Ordered Sig/Presley Route Start Time Stop Time Status Last Admin Dose Admin Lisinopril 20 mg DAILY PO 10/19/24 10:00 10/23/24 09:44 20 MG Aspirin 81 mg DAILY PO 10/19/24 10:00 10/23/24 09:44 81 MG Ondansetron HCl 4 mg Q4HP PRN IV 10/18/24 14:30 Nitroglycerin 0.4 mg Q5MINP PRN SL 10/18/24 14:30 Morphine Sulfate 2 mg Q30M PRN IV 10/18/24 14:30 Diagnostic Test (Pha) 1 strip ACHS 10/18/24 22:00 10/24/24 06:38 1 STRIP Insulin Human Regular ACHS SC 10/18/24 22:00 10/23/24 06:21 2 UNITS Dextrose 50 ml UD PRN IV 10/18/24 19:45 Atorvastatin Calcium 20 mg HS PO 10/19/24 22:00 10/23/24 21:47 20 MG Laboratory Results Laboratory Tests 10/23/24 07:00 Urinalysis Test 10/18/24 08:45 10/19/24 09:01 Urine Color Light-yellow (Yellow) Urine Clarity Clear (Clear) Urine pH 6.0 (5.0-9.0) Urine Specific [place] 1.017 (1.001-1.035) Urine Protein Negative (Negative) Urine Ketones Negative (Negative) Urine Blood Negative /uL (Negative) Urine Nitrite Negative (Negative) Urine Bilirubin Negative (Negative) Urine Urobilinogen Normal mg/dL (Negative) Urine Leukocyte Esterase Negative /uL (Negative) Urine RBC 1 /hpf (0 - 4) Urine Microscopic WBC 1 /HPF (0-5) Urine Squamous Epithelial Cells Few /hpf (<5) Urine Bacteria None seen /hpf (None Seen) Urine Mucus Few (None Seen) Urine Glucose Normal mg/dL (Normal) Urine Test Negative (Negative) Labs and/or images reviewed: Labs reviewed by me, Image(s) reviewed by me Assessment/Plan Assessment/Plan 10/20: Patient has been seen by Cardiology today. Cardiolite test is done, and showing inferior apical mid inducible ischemia... The plan for left heart catheterization Tuesday. 10/21: By cardiology planning for left heart catheterization angiogram tomorrow, patient is stable otherwise. 10/22 [facility] today. will fu with cardiology for recommendations. 10/23: Patient discharge but had diarrhea discharge was held 10/24: If diarrhea is improving we will check labs and possible DC today. #Atypical chest pain, associated with dizziness. -relates pain related to stress in her life. non exertional -cardiology consulted. Lexiscan, echo pending -heart score 3. HS trop negative, EKG NSR. #DM-2 -SSI med, A1C, CCD med diet other chronic medical issues: #HTN #HLD #Obesity Plan discussed with: Other My Orders Orders - ALFIE BEAVER MD Procedure Category Date Status Time Discharge DISCHARGE 10/23/24 Transmitted 15:37 Stool Bacterial VALERIE 10/23/24 Uncollected Culture 16:41 Complete Blood Count LAB 10/24/24 Logged 09:30 Basic Metabolic Panel LAB 10/24/24 Logged 09:30 Date of Service: Oct 24, 2024 Billing Provider: ALFIE BEAVER MD Common Visit Codes: [id number] INP/OBS CARE(MOD) ALFIE BEAVER MD Oct 24, 2024 09:37
== END 2024-10-24 12:45 | disposition home or self-care (01) | DRG 192 ==
LOC: ER 07:36 → OVERFLOW 14:21 → TELE-WESTW 10-19 23:19
PROVIDERS: ADMIT Student in an Organized Health Care Education/Training Program; ATTEND Student in an Organized Health Care Education/Training Program
PROC: 4A023N7 Measurement of Cardiac Sampling and Pressure, Left Heart, Percutaneous Approach (ICD-10-PCS; principal; 2024-10-22)
PROC: B211YZZ Fluoroscopy of Multiple Coronary Arteries using Other Contrast (ICD-10-PCS; 2024-10-22)
PROC: B215YZZ Fluoroscopy of Left Heart using Other Contrast (ICD-10-PCS; 2024-10-22)
DX: M94.0 Chondrocostal junction syndrome [Tietze] (principal); I16.0 Hypertensive urgency; E11.9 Type 2 diabetes mellitus without complications; I10 Essential (primary) hypertension; E66.01 Morbid (severe) obesity due to excess calories; E78.5 Hyperlipidemia, unspecified; F15.90 Other stimulant use, unspecified, uncomplicated; Z68.33 Body mass index [BMI] 33.0-33.9, adult; Z91.018 Allergy to other foods; Z83.3 Family history of diabetes mellitus; Z82.49 Family history of ischemic heart disease and other diseases of the circulatory system; Z91.013 Allergy to seafood
CPT/HCPCS: 36415; 70450; 71045; 78452; 80048; 80053; 80061; 80307; 81001; 81025; 82962; 83036; 83735; 84443; 84484; 85025; 85048; 93005; 93017; 93306; 93458; 97110; 97116; 97163; 97530; 99152; 99291; G0378; J1815; J2250; Q9967